=== PATIENT | male | born 1955 | race Caucasian/White ===

== ENCOUNTER 2020-09-03 11:56 | Outpatient (REF) | payer OTHER, SELFPAY ==
[2020-09-03 14:05] LABS: MANUAL DIFF FLAG NO
[2020-09-03 14:16] LABS: Basophils Absolute Auto 0.1 X10*3/uL (0.0-0.2); Eosinophils Absolute Auto 0.2 X10*3/uL (0.0-0.4); Eosinophils Percent Auto 2.7 % (0-4); Hematocrit 44.6 % (42-52); Hemoglobin 15.4 g/dl (14.0-18.0); Imm Gran Abs Auto 0.02 X10*3/uL (0.00-0.03); Imm Gran Pct Auto 0.3 % (0.0-0.4); Lymphocytes Absolute Auto 2.1 X10*3/uL (1.2-4.9); Lymphocytes Percent Auto 35.3 % (20-40); Mean Corpuscular HGB Conc 34.5 g/dl (31.0-36.0); Mean Corpuscular Hemoglobin 32.4 pg (27.0-33.0); Mean Corpuscular Volume 93.9 fL (80-98); Mean Platelet Volume 11.2 fL (9.4-12.4); Monocytes Absolute Auto 0.6 X10*3/uL (0.1-1.2); Monocytes Percent Auto 9.3 % (2-11); Neutrophils Percent Auto 51.4 % (45-73); Platelet Count 151 X10*3/uL (160-400); Red Blood Count 4.75 X10*6/uL (4.60-5.80); Red Cell Distribution Width 13.1 % (11.0-16.0); White Blood Count 5.9 X10*3/uL (4.8-10.8)
[2020-09-03 14:17] LABS: Estimated Average Glucose 157 mg/dL; Hemoglobin A1c % 7.1 %
[2020-09-03 14:25] LABS: Creatinine Urine 211.54 mg/dL; Microalbum/Creatinine Ratio Ur 6.6 ug/mg cr
[2020-09-03 14:27] LABS: Alanine Aminotransferase 44 U/L (0-40); Albumin Level 4.1 g/dL (3.5-5.0); Alkaline Phosphatase 112 U/L (39-117); Anion Gap 15 (12-20); Aspartate Amino Transferase 43 U/L (5-37); Bilirubin Total 0.8 mg/dL (0.0-1.0); Blood Urea Nitrogen 12 mg/dL (9-16); Calcium 9.1 mg/dL (8.4-10.2); Carbon Dioxide 26 mmol/L (22-29); Chloride 102 mmol/L (96-108); Cholesterol 191 mg/dL; Estimated Glomerular Filt Rate > 60; Glucose Random 139 mg/dL (60-115); HDL Cholesterol 47 mg/dL; LDL Cholesterol Calculated 116 mg/dl; Potassium 4.5 mmol/L (3.3-5.1); Sodium 138 mmol/L (135-145); Total Protein 7.5 g/dL (6.5-8.0); Triglycerides 142 mg/dL; Uric Acid 4.3 mg/dL (3.4-7.0)
[2020-09-03 14:49] LABS: Free T4 (Free Thyroxine) 0.91 ng/dL (0.71-1.85); Prostate Specific Antigen Scr 0.74 ng/mL (<0.05-4.0); Thyroid Stimulating Hormone 0.13 uIU/mL (0.32-4.0)
[2020-09-03 15:13] LABS: Folate 7.4 ng/mL (> or = 4.0); Vitamin B12 354 pg/mL (200-900)
== END 2020-09-03 11:57 | disposition home or self-care (01) ==
LOC: HO.HMGCLDS 11:56
PROVIDERS: PCP Internal Medicine; Visit Provider Internal Medicine
DX: E78.00 Pure hypercholesterolemia, unspecified (principal); E78.1 Pure hyperglyceridemia; E11.65 Type 2 diabetes mellitus with hyperglycemia; I10 Essential (primary) hypertension; M10.9 Gout, unspecified; R79.89 Other specified abnormal findings of blood chemistry; Z12.5 Encounter for screening for malignant neoplasm of prostate
CPT/HCPCS: 36415; 80053; 80061; 82043; 82607; 82746; 83036; 84153; 84439; 84443; 84550; 85025

== ENCOUNTER 2020-09-24 13:40 | Outpatient (REF) | payer OTHER, SELFPAY ==
[2020-09-24 16:54] LABS: Creatinine Urine 72.68 mg/dL
[2020-09-24 17:17] LABS: Free T4 (Free Thyroxine) 0.99 ng/dL (0.71-1.85); Thyroid Stimulating Hormone 0.13 uIU/mL (0.32-4.0)
== END 2020-09-24 13:41 | disposition home or self-care (01) ==
LOC: HO.HMGCLDS 13:40
PROVIDERS: PCP Internal Medicine; Visit Provider Internal Medicine
DX: R79.89 Other specified abnormal findings of blood chemistry (principal); E11.65 Type 2 diabetes mellitus with hyperglycemia; E05.90 Thyrotoxicosis, unspecified without thyrotoxic crisis or storm
CPT/HCPCS: 36415; 84439; 84443

== ENCOUNTER 2020-11-18 11:39 | Outpatient (REF) | payer OTHER, SELFPAY ==
[2020-11-18 14:24] LABS: Free T4 (Free Thyroxine) 0.96 ng/dL (0.71-1.85); Thyroid Stimulating Hormone 0.09 uIU/mL (0.32-4.0)
[2020-11-19 10:12] LABS: Triiodothyronine T3 Total 106 ng/dL (76-181)
[2020-11-19 19:11] LABS: Thyroglobulin Antibodies <1 IU/mL (< or = 1); Thyroid Peroxidase Antibodies 1 IU/mL (<9)
[2020-11-22 16:16] LABS: Thyroid Stimulating Immunoglob <89 % baseline (<140)
[2020-11-23 07:56] LABS: Thyrotropin Receptor Antibody <1.00 IU/L (<=2.00)
== END 2020-11-18 11:40 | disposition home or self-care (01) ==
LOC: HO.LAB 11:39
PROVIDERS: PCP Internal Medicine; Referring Provider Internal Medicine; Visit Provider Internal Medicine Endocrinology, Diabetes & Metabolism
DX: E05.90 Thyrotoxicosis, unspecified without thyrotoxic crisis or storm (principal); E04.9 Nontoxic goiter, unspecified; F17.290 Nicotine dependence, other tobacco product, uncomplicated; Z79.899 Other long term (current) drug therapy; Z79.82 Long term (current) use of aspirin
CPT/HCPCS: 36415; 83520; 84439; 84443; 84445; 84480; 86376; 86800; 99202

== ENCOUNTER 2020-11-30 13:47 | Outpatient (REF) | payer OTHER, SELFPAY ==
--- NOTE | ~2020-11-30 | US_ITS ---
EXAMINATION: US THYROID CLINICAL INFORMATION: Nontoxic goiter, unspecified. COMPARISON: None TECHNIQUE: Linear transducer sadler-scale and color Doppler examination with attention to the region of the thyroid. FINDINGS: SIZE: Measurements of the thyroid lobes and nodules are given in sagittal, anteroposterior and transverse dimensions respectively. Right Thyroid Lobe: 7.1 x 2.9 x 3.0 cm, volume 32.3 mL. Parenchyma: The gland echotexture is heterogeneous. Thyroid vascularity is increased. Left Thyroid Lobe: 9.9 x 4.7 x 4.1 cm, volume 99.8 mL. Parenchyma: The gland echotexture is heterogeneous. Thyroid vascularity is increased. Isthmus: 2.5 cm in maximum AP dimension. Estimated total number of nodules greater than or equal to 1 cm: 4. Balance Wheel Motion Inspector nodules are described as follows: 1. Location: Left mid. Size: 4.5 x 4.0 x 5.0 cm, volume 46.3 mL. Nodule characteristics: Composition: Solid (2). Echogenicity: Isoechoic (1). Shape: Not taller than wide (0). Margins: Lobulated (2). ACR TI-RADS total points: 5 ACR TI-RADS category: 4 2. Location: Lower left isthmus. Size: 4.5 x 2.3 x 3.0 cm, volume 16.4 mL. Nodule characteristics: Composition: Solid (2). Echogenicity: Isoechoic (1). Shape: Not taller than wide (0). Margins: Lobulated (2). Echogenic Foci: Punctate echogenic foci (3). ACR TI-RADS total points: 8 ACR TI-RADS category: 5 3. Location: Lower left. Size: 3.9 x 3.4 x 3.2 cm, volume 29.6 mL. Nodule characteristics: Composition: Solid (2). Echogenicity: Isoechoic (1). Shape: Taller than wide (3). Margins: Ill-defined (0). Echogenic Foci: None (0). ACR TI-RADS total points: 6 ACR TI-RADS category: 4 4. Location: Right. Size: 5.6 x 3.0 x 3.3 cm, volume 29.4 mL. Nodule characteristics: Composition: Solid (2). Echogenicity: Isoechoic (1). Shape: Not taller than wide (0). Margins: Lobulated (2). Echogenic Foci: None (0). ACR TI-RADS total points: 5 ACR TI-RADS category: 4 NODES: No lymphadenopathy is seen in the tissue surrounding the thyroid gland. US/US thyroid IMPRESSION: Significantly enlarged thyroid gland secondary to multiple bilateral lung nodules with the largest nodule in the right middle lobe and left middle lobe. These nodules are lie adjacent to each other and very difficult to differentiate. There are likely smaller nodules hard to differentiate from the larger nodules. Based on ACR TI-RADS recommendation, all of the large 4 nodules should be biopsied. If biopsy cannot be performed, a short-term 3-6 month followup should be performed. ACR TI-RADS RECOMMENDATION REFERENCE: Ultrasound-guided fine-needle aspiration, followup ultrasound, no further follow up. * TR1 (0 point) and TR 2 (2 points): No FNA or follow up * TR3 (3 points): FNA if more than or equal to 2.5 cm in maximum dimension, followup ultrasound in 1, 3 and 5 years if 1.5 to 2.4 cm in maximum dimension. * TR4 (4-6 points): FNA if more than or equal to 1.5 cm in maximum dimension, followup ultrasound in 1, 2, 3 and 5 years if 1 to 1.4 cm in maximum dimension. * TR5 (more than or equal to 7 points): FNA if more than or equal to 1 cm in maximum dimension, followup ultrasound every year for 5 years if 0.5 to 0.9 cm in maximum dimension. * TR3, TR4 or TR5 nodules that are below the size threshold for follow up receive no follow up.
== END 2020-11-30 13:48 | disposition home or self-care (01) ==
LOC: HO.HMGCX 13:47
PROVIDERS: PCP Internal Medicine; Visit Provider Internal Medicine Endocrinology, Diabetes & Metabolism
DX: E04.9 Nontoxic goiter, unspecified (principal); E05.90 Thyrotoxicosis, unspecified without thyrotoxic crisis or storm
CPT/HCPCS: 76536

== ENCOUNTER → 2020-12-30 10:19 | Outpatient (REF) | payer OTHER, SELFPAY ==
--- NOTE | ~2020-12-30 | NM_ITS ---
EXAMINATION: NM THYROID UPTAKE AND SCAN CLINICAL INFORMATION: Nontoxic goiter. COMPARISON: None TECHNIQUE: Following the oral administration of 272 microcuries of I-123 sodium iodide, thyroid uptake was performed and expressed as a percentage of the administrated dose. Gamma scintillation camera images of the thyroid in the anterior and right and left anterior oblique views were obtained using a pinhole collimator following the administration of 10 mCi Tc-99m pertechnetate. FINDINGS: The uptake is 8.14% at 4 hours and 26.18% at 24 hours. On thyroid scan, there is significant decreased activity seen in enlarged left thyroid lobe with a small colloid nodule in the upper pole and midpole suspected. There is normal activity seen in the upper pole right lobe and decreased activity in the mid to lower pole right lobe. Overall, the gland appears enlarged. NM/NM thyroid w uptake IMPRESSION: Findings suggestive of an enlarged thyroid gland with multiple cold nodules in both lobes. The left lobe is larger compared to right side. The radioactive iodine uptake is normal at 4 hours and 24 hours..
== END ==
LOC: HO.NUCMED 10:19
PROVIDERS: PCP Internal Medicine; Visit Provider Internal Medicine Endocrinology, Diabetes & Metabolism
DX: E04.9 Nontoxic goiter, unspecified (principal); E05.90 Thyrotoxicosis, unspecified without thyrotoxic crisis or storm
CPT/HCPCS: 78014; A9512; A9516

== ENCOUNTER 2021-01-24 14:07 | Outpatient (REF) | payer OTHER, SELFPAY | END 2021-01-24 14:08 | disposition home or self-care (01) | LOC: HO.LNP 14:07 | PROVIDERS: Visit Provider Hospitalist | DX: J01.90 Acute sinusitis, unspecified (principal); Z20.822 Contact with and (suspected) exposure to COVID-19 | CPT/HCPCS: U0003; U0005 ==

== ENCOUNTER 2021-03-04 12:12 | Outpatient (REF) | payer OTHER, SELFPAY ==
[2021-03-04 14:26] LABS: Alanine Aminotransferase 23 U/L (0-40); Albumin Level 4.5 g/dL (3.5-5.0); Alkaline Phosphatase 108 U/L (39-117); Anion Gap 16 (12-20); Aspartate Amino Transferase 26 U/L (5-37); Bilirubin Total 1.3 mg/dL (0.0-1.0); Blood Urea Nitrogen 18 mg/dL (9-16); Calcium 9.8 mg/dL (8.4-10.2); Carbon Dioxide 24 mmol/L (22-29); Chloride 101 mmol/L (96-108); Cholesterol 180 mg/dL; Estimated Glomerular Filt Rate > 60; Glucose Random 126 mg/dL (60-115); HDL Cholesterol 53 mg/dL; LDL Cholesterol Calculated 96 mg/dl; Potassium 4.5 mmol/L (3.3-5.1); Sodium 136 mmol/L (135-145); Triglycerides 155 mg/dL
== END 2021-03-04 12:13 | disposition home or self-care (01) ==
LOC: HO.HMGCLDS 12:12
PROVIDERS: PCP Internal Medicine; Visit Provider Internal Medicine
DX: E78.00 Pure hypercholesterolemia, unspecified (principal)
CPT/HCPCS: 36415; 80053; 80061

== ENCOUNTER 2021-04-06 12:41 | Outpatient (REF) | payer OTHER, SELFPAY ==
[2021-04-06 14:55] LABS: Alanine Aminotransferase 27 U/L (0-40); Albumin Level 4.3 g/dL (3.5-5.0); Alkaline Phosphatase 115 U/L (39-117); Anion Gap 13 (12-20); Aspartate Amino Transferase 27 U/L (5-37); Bilirubin Total 0.7 mg/dL (0.0-1.0); Blood Urea Nitrogen 14 mg/dL (9-16); Calcium 9.9 mg/dL (8.4-10.2); Carbon Dioxide 27 mmol/L (22-29); Chloride 101 mmol/L (96-108); Estimated Glomerular Filt Rate > 60; Glucose Random 131 mg/dL (60-115); Phosphorus 2.6 mg/dL (2.7-4.5); Potassium 4.5 mmol/L (3.3-5.1); Sodium 136 mmol/L (135-145); Total Protein 7.6 g/dL (6.5-8.0)
[2021-04-06 15:18] LABS: Free T4 (Free Thyroxine) 1.02 ng/dL (0.71-1.85); Thyroid Stimulating Hormone 0.04 uIU/mL (0.32-4.0); Vitamin D 25-OH Total 26.3 ng/mL (>30)
[2021-04-08 00:32] LABS: Triiodothyronine T3 Total 125 ng/dL (76-181)
[2021-04-08 10:32] LABS: Calcium (PTHI) 9.9 mg/dL (8.6-10.3); PTHI 26 pg/mL (14-64)
== END 2021-04-06 12:42 | disposition home or self-care (01) ==
LOC: HO.LAB 12:41
PROVIDERS: PCP Internal Medicine; Visit Provider Internal Medicine
DX: E55.9 Vitamin D deficiency, unspecified (principal); E05.80 Other thyrotoxicosis without thyrotoxic crisis or storm; E04.2 Nontoxic multinodular goiter; Z79.899 Other long term (current) drug therapy
CPT/HCPCS: 36415; 80053; 82306; 83970; 84100; 84439; 84443; 84480; 99212

== ENCOUNTER 2021-07-21 10:25 | Outpatient (REF) | payer OTHER, MEDICAID, SELFPAY ==
[2021-07-21 11:39] LABS: Estimated Average Glucose 134 mg/dL; Hemoglobin A1c % 6.3 %
[2021-07-21 11:45] LABS: Alanine Aminotransferase 16 U/L (0-40); Albumin Level 4.3 g/dL (3.5-5.0); Alkaline Phosphatase 104 U/L (39-117); Anion Gap 11 (12-20); Aspartate Amino Transferase 21 U/L (5-37); Bilirubin Total 0.9 mg/dL (0.0-1.0); Blood Urea Nitrogen 23 mg/dL (9-16); Calcium 9.8 mg/dL (8.4-10.2); Carbon Dioxide 27 mmol/L (22-29); Chloride 102 mmol/L (96-108); Estimated Glomerular Filt Rate 55; Glucose Random 141 mg/dL (60-115); Potassium 4.6 mmol/L (3.3-5.1); Sodium 135 mmol/L (135-145); Total Protein 7.8 g/dL (6.5-8.0)
== END 2021-07-21 10:26 | disposition home or self-care (01) ==
LOC: HO.HMGCLDS 10:25
PROVIDERS: PCP Internal Medicine; Visit Provider Internal Medicine
DX: I10 Essential (primary) hypertension (principal)
CPT/HCPCS: 36415; 80053; 83036

== ENCOUNTER 2021-08-01 10:29 | Outpatient (REF) | payer OTHER, SELFPAY ==
[2021-08-01 13:44] LABS: MANUAL DIFF FLAG NO
[2021-08-01 13:47] LABS: Basophils Absolute Auto 0.1 X10*3/uL (0.0-0.2); Basophils Percent Auto 0.6 % (0-2); Eosinophils Absolute Auto 0.2 X10*3/uL (0.0-0.4); Hematocrit 42.6 % (42.0-52.0); Hemoglobin 14.6 g/dl (14.0-18.0); Imm Gran Abs Auto 0.02 X10*3/uL (0.00-0.03); Imm Gran Pct Auto 0.3 % (0.0-0.4); Lymphocytes Absolute Auto 2.3 X10*3/uL (1.2-4.9); Mean Corpuscular HGB Conc 34.3 g/dl (31.0-36.0); Mean Corpuscular Hemoglobin 32.2 pg (27.0-33.0); Mean Corpuscular Volume 93.8 fL (80.0-98.0); Mean Platelet Volume 11.3 fL (9.4-12.4); Monocytes Absolute Auto 0.7 X10*3/uL (0.1-1.2); Neutrophils Absolute Auto 4.6 x10*3/uL (2.0-8.3); Neutrophils Percent Auto 59.1 % (45-73); Platelet Count 218 X10*3/uL (160-400); Red Blood Count 4.54 X10*6/uL (4.60-5.80); Red Cell Distribution Width 12.3 % (11.0-16.0); White Blood Count 7.8 X10*3/uL (4.8-10.8)
[2021-08-01 14:02] LABS: Cholesterol 196 mg/dL; HDL Cholesterol 50 mg/dL; LDL Cholesterol Calculated 119 mg/dl; Triglycerides 136 mg/dL
[2021-08-01 14:03] LABS: Alanine Aminotransferase 23 U/L (0-40); Albumin Level 4.2 g/dL (3.5-5.0); Alkaline Phosphatase 109 U/L (39-117); Anion Gap 14 (12-20); Aspartate Amino Transferase 25 U/L (5-37); Bilirubin Direct 0.3 mg/dL (0.0-0.5); Bilirubin Total 0.6 mg/dL (0.0-1.0); Blood Urea Nitrogen 15 mg/dL (9-16); Calcium 9.6 mg/dL (8.4-10.2); Carbon Dioxide 22 mmol/L (22-29); Chloride 103 mmol/L (96-108); Estimated Glomerular Filt Rate > 60; Glucose Random 147 mg/dL (60-115); Potassium 4.4 mmol/L (3.3-5.1); Sodium 135 mmol/L (135-145); Total Protein 7.7 g/dL (6.5-8.0)
[2021-08-02 08:02] LABS: HBS Num1 0.15 mIU/mL (0-7.99); HBc Num1 0.19 S/CO (0.00-0.79); Hepatitis B Core Antibody Nonreactive (Nonreactive); ~HepC Num1 0.34 S/CO (0.00-0.79); ~Hepatitis B Surface Antibody NONREACTIVE (Nonreactive); ~Hepatitis C Antibody Nonreactive (Nonreactive)
[2021-08-02 08:11] LABS: HBsAGNum1 0.19 S/CO (0.00-0.99); Hepatitis B Surface Antigen Negative (Negative)
[2021-08-03 12:32] LABS: TS Negative Control Passed; TS Panel A 0; TS Panel B 0; TS Positive Control Passed; TSpotTB Negative (Negative)
== END 2021-08-01 10:30 | disposition home or self-care (01) ==
LOC: HO.HMGCLDS 10:29
PROVIDERS: Visit Provider Dermatology
DX: Z11.1 Encounter for screening for respiratory tuberculosis (principal); L40.0 Psoriasis vulgaris; L40.8 Other psoriasis
CPT/HCPCS: 36415; 80048; 80061; 80076; 85025; 86481; 86704; 86706; 86803; 87340

== ENCOUNTER 2021-08-11 11:23 | Outpatient (REF) | payer MEDICAID, SELFPAY ==
[2021-08-11 14:26] LABS: Free T4 (Free Thyroxine) 0.92 ng/dL (0.71-1.85); Thyroid Stimulating Hormone 1.52 uIU/mL (0.32-4.0)
[2021-08-12 05:31] LABS: Triiodothyronine T3 Total 119 ng/dL (76-181)
== END 2021-08-11 11:24 | disposition home or self-care (01) ==
LOC: HO.HMGCLDS 11:23
PROVIDERS: PCP Internal Medicine; Visit Provider Internal Medicine
DX: E05.90 Thyrotoxicosis, unspecified without thyrotoxic crisis or storm (principal)
CPT/HCPCS: 36415; 84439; 84443; 84480

== ENCOUNTER 2021-08-18 09:51 | Outpatient (REF) | payer OTHER, SELFPAY ==
--- NOTE | 2021-08-18 10:38 | PM.OP ---
Brief Operative Note Date of Service: 08/18/21 Pre-op diagnosis: Multinodular Thyroid Procedure: This is doctor Cynthia Bonds. This is an ultrasound-guided fine-needle aspiration report. Date of Examination: 08/18/2021 Indication: Multinodular Thyroid Porcedure: Procedure was explained to the patient. Alternatives, the risk and benefits were discussed. Written consent was obtained. A time-out was also obtained. After sterile preparation, fine-needle aspiration of a right lower pole 5.6 cm thyroid nodule was performed using direct ultrasound guidance to confirm accurate needle placement. Four aspirations were made using 27 gauge needles. Samples were submitted for cytology. One pass was dedicated for [employer] sequencing pharmaceutical operator testing. Our attention was then turned to the right isthmus. Fine-needle aspiration of a right isthmus 2.3 cm thyroid nodule was performed using direct ultrasound guidance to confirm accurate needle placement. Three aspirations were made using 27 gauge needles. Samples were submitted for cytology. One pass was dedicated for [employer] sequencing pharmaceutical operator testing. The patient tolerated the procedure well. Aftercare instructions were provided. Impression: Uncomplicated fine needle aspiration biopsy of a right lower pole 5.6 cm thyroid nodule and a right isthmus 2.3 cm thyroid nodule under ultrasound guidance. Surgeon: Cynthia Bonds, DO Was an Unified Communications Engineer used for this Procedure?: No Estimated blood loss (mL): 0
== END 2021-08-18 09:52 | disposition home or self-care (01) ==
LOC: HO.US 09:51
PROVIDERS: Visit Provider Nurse Practitioner Family
DX: E04.2 Nontoxic multinodular goiter (principal)
CPT/HCPCS: 10005; 10006; 88172; 88173

== ENCOUNTER → 2021-09-01 10:05 | Outpatient (BNVA) | payer OTHER, SELFPAY | PROVIDERS: PCP Internal Medicine; Visit Provider Internal Medicine | DX: E04.2 Nontoxic multinodular goiter (principal); Z79.899 Other long term (current) drug therapy ==

== ENCOUNTER 2021-09-08 09:49 | Outpatient (REF) | payer OTHER, SELFPAY ==
--- NOTE | 2021-09-08 10:30 | PM.OP ---
Brief Operative Note Date of Service: 09/08/21 Pre-op diagnosis: Multinodular Thyroid Procedure: This is doctor Cynthia Bonds. This is an ultrasound-guided fine-needle aspiration report. Date of Examination: 09/08/2021 Indication: Multinodular Thyroid Porcedure: Procedure was explained to the patient. Alternatives, the risk and benefits were discussed. Written consent was obtained. A time-out was also obtained. After sterile preparation, fine-needle aspiration of a left isthmus 2.0 cm thyroid nodule was performed using direct ultrasound guidance to confirm accurate needle placement. Three aspirations were made using 27 gauge needles. Samples were submitted for cytology. One pass was dedicated for [employer] sequencing adjustment supervisor testing. Our attention was then turned to the left lower pole. Fine-needle aspiration of a left lower pole 4.5 cm thyroid nodule was performed using direct ultrasound guidance to confirm accurate needle placement. Four aspirations were made using 27 gauge needles. Samples were submitted for cytology. One pass was dedicated for [employer] sequencing adjustment supervisor testing. Our attention was then turned to the left mid pole. Fine-needle aspiration of a left mid pole 3.5 cm thyroid nodule was performed using direct ultrasound guidance to confirm accurate needle placement. Four aspirations were made using 27 gauge needles. Samples were submitted for cytology. One pass was dedicated for [employer] sequencing adjustment supervisor testing. The patient tolerated the procedure well. Aftercare instructions were provided. Impression: Uncomplicated fine needle aspiration biopsy of a left isthmus 2.0 cm, a left mid pole 3.5 cm and a left lower pole 4.5 cm thyroid nodule under ultrasound guidance. Surgeon: Cynthia Bonds, DO Was an Home Help Aide used for this Procedure?: No Estimated blood loss (mL): 0
== END 2021-09-08 09:50 | disposition home or self-care (01) ==
LOC: HO.US 09:49
PROVIDERS: Visit Provider Internal Medicine
DX: E04.2 Nontoxic multinodular goiter (principal)
CPT/HCPCS: 10005; 10006; 88172; 88173; 88177

== ENCOUNTER → 2021-10-13 08:22 | Outpatient (BNVA) | payer OTHER, SELFPAY | PROVIDERS: PCP Internal Medicine; Visit Provider Internal Medicine | DX: Z13.89 Encounter for screening for other disorder (principal) ==

== ENCOUNTER 2021-11-09 12:04 | Outpatient (REF) | payer OTHER, SELFPAY ==
[2021-11-09 14:45] LABS: Alanine Aminotransferase 17 U/L (0-40); Albumin Level 4.4 g/dL (3.5-5.0); Alkaline Phosphatase 115 U/L (39-117); Anion Gap 15 (12-20); Aspartate Amino Transferase 20 U/L (5-37); Bilirubin Total 0.7 mg/dL (0.0-1.0); Blood Urea Nitrogen 26 mg/dL (9-16); Carbon Dioxide 22 mmol/L (22-29); Chloride 104 mmol/L (96-108); Cholesterol 179 mg/dL; Estimated Glomerular Filt Rate 46; Glucose Random 119 mg/dL (60-115); HDL Cholesterol 57 mg/dL; LDL Cholesterol Calculated 98 mg/dl; Potassium 5.1 mmol/L (3.3-5.1); Sodium 136 mmol/L (135-145); Total Protein 8.1 g/dL (6.5-8.0); Triglycerides 121 mg/dL
== END 2021-11-09 12:05 | disposition home or self-care (01) ==
LOC: HO.HMGCLDS 12:04
PROVIDERS: PCP Internal Medicine; Visit Provider Internal Medicine
DX: E78.00 Pure hypercholesterolemia, unspecified (principal)
CPT/HCPCS: 36415; 80053; 80061

== ENCOUNTER 2021-11-21 08:26 | Outpatient (REF) | payer OTHER, SELFPAY ==
[2021-11-21 13:06] LABS: Anion Gap 15 (12-20); Blood Urea Nitrogen 28 mg/dL (9-16); Calcium 9.6 mg/dL (8.4-10.2); Carbon Dioxide 21 mmol/L (22-29); Chloride 102 mmol/L (96-108); Estimated Glomerular Filt Rate 53; Glucose Random 113 mg/dL (60-115); Sodium 133 mmol/L (135-145)
== END 2021-11-21 08:27 | disposition home or self-care (01) ==
LOC: HO.HMGCLDS 08:26
PROVIDERS: PCP Internal Medicine; Visit Provider Internal Medicine
DX: I10 Essential (primary) hypertension (principal)
CPT/HCPCS: 36415; 80048

== ENCOUNTER 2021-12-01 11:48 | Outpatient (REF) | payer OTHER, SELFPAY ==
[2021-12-01 14:16] LABS: Albumin Level 4.5 g/dL (3.5-5.0); Phosphorus 3.3 mg/dL (2.7-4.5)
[2021-12-01 14:41] LABS: Free T4 (Free Thyroxine) 0.88 ng/dL (0.71-1.85); Thyroid Stimulating Hormone 0.77 uIU/mL (0.32-4.0); Vitamin D 25-OH Total 31.4 ng/mL (>30)
[2021-12-02 17:47] LABS: Calcium (PTHI) 9.8 mg/dL (8.6-10.3); PTHI 30 pg/mL (16-77)
[2021-12-03 12:01] LABS: Triiodothyronine T3 Total 103 ng/dL (76-181)
== END 2021-12-01 11:49 | disposition home or self-care (01) ==
LOC: HO.HMGCLDS 11:48
PROVIDERS: PCP Internal Medicine; Visit Provider Internal Medicine
DX: E04.2 Nontoxic multinodular goiter (principal); E05.90 Thyrotoxicosis, unspecified without thyrotoxic crisis or storm; E55.9 Vitamin D deficiency, unspecified
CPT/HCPCS: 36415; 82040; 82306; 83970; 84100; 84439; 84443; 84480

== ENCOUNTER 2022-03-17 10:46 | Outpatient (REF) | payer OTHER, SELFPAY ==
[2022-03-17 14:22] LABS: Free T4 (Free Thyroxine) 0.95 ng/dL (0.71-1.85)
[2022-03-18 19:56] LABS: Triiodothyronine T3 Free 3.4 pg/mL (2.3-4.2)
== END 2022-03-17 10:47 | disposition home or self-care (01) ==
LOC: HO.HMGCLDS 10:46
PROVIDERS: Absent Provider Internal Medicine; PCP Internal Medicine; Visit Provider Surgery
DX: E05.00 Thyrotoxicosis with diffuse goiter without thyrotoxic crisis or storm (principal)
CPT/HCPCS: 36415; 84439; 84443; 84481

== ENCOUNTER 2022-05-19 10:49 | Outpatient (REF) | payer OTHER, SELFPAY ==
[2022-05-19 14:12] LABS: MANUAL DIFF FLAG NO
[2022-05-19 14:24] LABS: Basophils Absolute Auto 0.1 X10*3/uL (0.0-0.2); Eosinophils Absolute Auto 0.2 X10*3/uL (0.0-0.4); Hematocrit 43.8 % (42.0-52.0); Hemoglobin 14.9 g/dl (14.0-18.0); Imm Gran Abs Auto 0.02 X10*3/uL (0.00-0.03); Imm Gran Pct Auto 0.3 % (0.0-0.4); Lymphocytes Absolute Auto 2.1 X10*3/uL (1.2-4.9); Lymphocytes Percent Auto 33.8 % (20-40); Mean Corpuscular Hemoglobin 32.1 pg (27.0-33.0); Mean Corpuscular Volume 94.4 fL (80.0-98.0); Mean Platelet Volume 11.3 fL (9.4-12.4); Monocytes Absolute Auto 0.6 X10*3/uL (0.1-1.2); Neutrophils Absolute Auto 3.3 x10*3/uL (2.0-8.3); Neutrophils Percent Auto 51.9 % (45-73); Platelet Count 197 X10*3/uL (160-400); Red Blood Count 4.64 X10*6/uL (4.60-5.80); Red Cell Distribution Width 12.6 % (11.0-16.0); White Blood Count 6.3 X10*3/uL (4.8-10.8)
[2022-05-19 16:27] LABS: Alanine Aminotransferase 28 U/L (0-40); Albumin Level 4.3 g/dL (3.5-5.0); Alkaline Phosphatase 136 U/L (39-117); Anion Gap 10 (12-20); Aspartate Amino Transferase 30 U/L (5-37); Bilirubin Total 0.4 mg/dL (0.0-1.0); Blood Urea Nitrogen 18 mg/dL (9-16); Calcium 9.2 mg/dL (8.4-10.2); Carbon Dioxide 26 mmol/L (22-29); Chloride 104 mmol/L (96-108); Estimated Glomerular Filt Rate > 60; Glucose Random 144 mg/dL (60-115); Potassium 4.4 mmol/L (3.3-5.1); Sodium 136 mmol/L (135-145); Total Protein 7.3 g/dL (6.5-8.0)
[2022-05-19 16:47] LABS: Albumin Level 4.4 g/dL (3.5-5.0); Free T4 (Free Thyroxine) 1.26 ng/dL (0.71-1.85); Phosphorus 2.8 mg/dL (2.7-4.5); Thyroid Stimulating Hormone 0.32 uIU/mL (0.32-4.0); Vitamin D 25-OH Total 19.5 ng/mL (>30)
[2022-05-20 20:53] LABS: Triiodothyronine T3 Total 113 ng/dL (76-181)
[2022-05-23 07:49] LABS: TS Negative Control Passed; TS Panel A 0; TS Panel B 0; TS Positive Control Passed; TSpotTB Negative (Negative)
[2022-05-23 15:13] LABS: Calcium (PTHI) 9.4 mg/dL (8.6-10.3); PTHI 41 pg/mL (16-77)
== END 2022-05-19 10:50 | disposition home or self-care (01) ==
LOC: HO.HMGCLDS 10:49
PROVIDERS: Absent Provider Dermatology; PCP Internal Medicine; Visit Provider Internal Medicine
DX: Z11.1 Encounter for screening for respiratory tuberculosis (principal); L40.0 Psoriasis vulgaris; E05.90 Thyrotoxicosis, unspecified without thyrotoxic crisis or storm; E55.9 Vitamin D deficiency, unspecified; E04.2 Nontoxic multinodular goiter
CPT/HCPCS: 36415; 80053; 82040; 82306; 83970; 84100; 84439; 84443; 84480; 85025; 86481

== ENCOUNTER 2022-07-10 13:46 | Outpatient (REF) | payer OTHER, SELFPAY ==
[2022-07-10 17:09] LABS: Albumin Level 4.6 g/dL (3.5-5.0); Phosphorus 2.8 mg/dL (2.7-4.5)
[2022-07-10 17:27] LABS: Free T4 (Free Thyroxine) 1.74 ng/dL (0.71-1.85); Thyroid Stimulating Hormone 0.08 uIU/mL (0.32-4.0); Vitamin D 25-OH Total 14.8 ng/mL (>30)
[2022-07-11 17:59] LABS: Calcium (PTHI) 9.8 mg/dL (8.6-10.3); PTHI 35 pg/mL (16-77)
== END 2022-07-10 13:47 | disposition home or self-care (01) ==
LOC: HO.HMGCLDS 13:46
PROVIDERS: Visit Provider Internal Medicine
DX: E89.0 Postprocedural hypothyroidism (principal); E55.9 Vitamin D deficiency, unspecified
CPT/HCPCS: 36415; 82040; 82306; 83970; 84100; 84439; 84443

== ENCOUNTER → 2022-07-12 08:25 | Outpatient (BNVA) | payer OTHER, SELFPAY | PROVIDERS: PCP Internal Medicine; Visit Provider Internal Medicine | DX: E89.0 Postprocedural hypothyroidism (principal) | CPT/HCPCS: 99212 ==

== ENCOUNTER 2022-08-23 10:56 | Outpatient (REF) | payer OTHER, SELFPAY ==
[2022-08-23 14:34] LABS: Free T4 (Free Thyroxine) 1.19 ng/dL (0.71-1.85); Thyroid Stimulating Hormone 0.21 uIU/mL (0.32-4.0)
== END 2022-08-23 10:57 | disposition home or self-care (01) ==
LOC: HO.HMGCLDS 10:56
PROVIDERS: PCP Internal Medicine; Visit Provider Internal Medicine
DX: E04.2 Nontoxic multinodular goiter (principal); E89.0 Postprocedural hypothyroidism
CPT/HCPCS: 36415; 84439; 84443

== ENCOUNTER 2022-10-13 12:50 | Outpatient (REF) | payer MEDICARE, SELFPAY ==
[2022-10-13 14:51] LABS: Free T4 (Free Thyroxine) 1.05 ng/dL (0.71-1.85)
== END 2022-10-13 12:51 | disposition home or self-care (01) ==
LOC: HO.HMGCLDS 12:50
PROVIDERS: PCP Internal Medicine; Visit Provider Internal Medicine
DX: E89.0 Postprocedural hypothyroidism (principal)
CPT/HCPCS: 36415; 84439; 84443

== ENCOUNTER → 2022-10-18 11:45 | Outpatient (BNVA) | payer MEDICARE, SELFPAY | PROVIDERS: PCP Internal Medicine; Visit Provider Internal Medicine | DX: E89.0 Postprocedural hypothyroidism (principal) | CPT/HCPCS: 99212 ==

== ENCOUNTER 2023-05-02 11:02 | Outpatient (REF) | payer MEDICARE, SELFPAY ==
[2023-05-02 13:17] LABS: MANUAL DIFF FLAG NO
[2023-05-02 13:21] LABS: Basophils Absolute Auto 0.1 X10*3/uL (0.0-0.2); Eosinophils Absolute Auto 0.2 X10*3/uL (0.0-0.4); Eosinophils Percent Auto 2.7 % (0-4); Hematocrit 45.7 % (42.0-52.0); Hemoglobin 15.6 g/dl (14.0-18.0); Imm Gran Abs Auto 0.02 X10*3/uL (0.00-0.03); Imm Gran Pct Auto 0.3 % (0.0-0.4); Lymphocytes Absolute Auto 2.1 X10*3/uL (1.2-4.9); Lymphocytes Percent Auto 34.2 % (20-40); Mean Corpuscular HGB Conc 34.1 g/dl (31.0-36.0); Mean Corpuscular Hemoglobin 33.5 pg (27.0-33.0); Mean Corpuscular Volume 98.3 fL (80.0-98.0); Mean Platelet Volume 11.3 fL (9.4-12.4); Monocytes Absolute Auto 0.6 X10*3/uL (0.1-1.2); Monocytes Percent Auto 9.5 % (2-11); Neutrophils Absolute Auto 3.3 x10*3/uL (2.0-8.3); Neutrophils Percent Auto 52.3 % (45-73); Platelet Count 192 X10*3/uL (160-400); Red Blood Count 4.65 X10*6/uL (4.60-5.80); Red Cell Distribution Width 12.8 % (11.0-16.0); White Blood Count 6.2 X10*3/uL (4.8-10.8)
[2023-05-02 13:41] LABS: Alanine Aminotransferase 51 U/L (0-40); Albumin Level 4.4 g/dL (3.5-5.0); Alkaline Phosphatase 125 U/L (39-117); Anion Gap 12 (12-20); Aspartate Amino Transferase 64 U/L (5-37); Bilirubin Total 0.7 mg/dL (0.0-1.0); Blood Urea Nitrogen 11 mg/dL (9-16); Calcium 9.7 mg/dL (8.4-10.2); Carbon Dioxide 27 mmol/L (22-29); Chloride 101 mmol/L (96-108); Estimated Glomerular Filt Rate > 60; Glucose Random 148 mg/dL (60-115); Potassium 4.4 mmol/L (3.3-5.1); Sodium 136 mmol/L (135-145)
[2023-05-04 10:23] LABS: TS Negative Control Passed; TS Panel A 0; TS Panel B 0; TS Positive Control Passed; TSpotTB Negative (Negative)
== END 2023-05-02 11:03 | disposition home or self-care (01) ==
LOC: HO.HMGCLDS 11:02
PROVIDERS: PCP Internal Medicine; Visit Provider Dermatology
DX: Z11.1 Encounter for screening for respiratory tuberculosis (principal); L40.0 Psoriasis vulgaris
CPT/HCPCS: 36415; 80053; 85025; 86481

== ENCOUNTER 2023-07-24 12:11 | Outpatient (REF) | payer MEDICARE, SELFPAY ==
[2023-07-24 13:33] LABS: MANUAL DIFF FLAG NO
[2023-07-24 13:38] LABS: Basophils Absolute Auto 0.1 X10*3/uL (0.0-0.2); Eosinophils Absolute Auto 0.1 X10*3/uL (0.0-0.4); Eosinophils Percent Auto 1.8 % (0-4); Hemoglobin 16.3 g/dl (14.0-18.0); Imm Gran Abs Auto 0.02 X10*3/uL (0.00-0.03); Imm Gran Pct Auto 0.3 % (0.0-0.4); Lymphocytes Absolute Auto 2.6 X10*3/uL (1.2-4.9); Lymphocytes Percent Auto 35.8 % (20-40); Mean Corpuscular HGB Conc 34.7 g/dl (31.0-36.0); Mean Corpuscular Hemoglobin 32.9 pg (27.0-33.0); Mean Corpuscular Volume 94.8 fL (80.0-98.0); Monocytes Absolute Auto 0.6 X10*3/uL (0.1-1.2); Monocytes Percent Auto 8.8 % (2-11); Neutrophils Absolute Auto 3.8 x10*3/uL (2.0-8.3); Neutrophils Percent Auto 52.3 % (45-73); Platelet Count 196 X10*3/uL (160-400); Red Blood Count 4.96 X10*6/uL (4.60-5.80); Red Cell Distribution Width 12.3 % (11.0-16.0); White Blood Count 7.2 X10*3/uL (4.8-10.8)
[2023-07-24 13:47] LABS: Estimated Average Glucose 131 mg/dL; Hemoglobin A1c % 6.2 % (<6.0)
[2023-07-24 14:35] LABS: Creatinine Urine 465.39 mg/dL
[2023-07-24 14:48] LABS: Alanine Aminotransferase 56 U/L (0-40); Albumin Level 4.3 g/dL (3.5-5.0); Alkaline Phosphatase 131 U/L (39-117); Anion Gap 15 (12-20); Aspartate Amino Transferase 84 U/L (5-37); Blood Urea Nitrogen 12 mg/dL (9-16); Calcium 9.5 mg/dL (8.4-10.2); Carbon Dioxide 21 mmol/L (22-29); Chloride 103 mmol/L (96-108); Cholesterol 209 mg/dL (<200); Estimated Glomerular Filt Rate > 60; Glucose Random 149 mg/dL (60-115); HDL Cholesterol 49 mg/dL (>40); LDL Cholesterol Calculated 119 mg/dL (<100); Potassium 4.5 mmol/L (3.3-5.1); Sodium 134 mmol/L (135-145); Total Protein 8.2 g/dL (6.5-8.0); Triglycerides 208 mg/dL (<150)
[2023-07-24 14:53] LABS: Thyroid Stimulating Hormone 0.63 uIU/mL (0.32-4.0)
[2023-07-24 15:11] LABS: Folate 8.5 ng/mL (> or = 4.0); Prostate Specific Antigen Scr 0.65 ng/mL (<0.05-4.0); Vitamin B12 518 pg/mL (200-900)
== END 2023-07-24 12:12 | disposition home or self-care (01) ==
LOC: HO.HMGCLDS 12:11
PROVIDERS: PCP Internal Medicine; Visit Provider Internal Medicine
DX: Z12.5 Encounter for screening for malignant neoplasm of prostate (principal); E11.65 Type 2 diabetes mellitus with hyperglycemia; E89.0 Postprocedural hypothyroidism; E78.00 Pure hypercholesterolemia, unspecified
CPT/HCPCS: 36415; 80053; 80061; 82043; 82570; 82607; 82746; 83036; 84153; 84439; 84443; 85025

== ENCOUNTER 2023-08-01 08:53 | Outpatient (REF) | payer MEDICARE, SELFPAY ==
--- NOTE | ~2023-08-01 | US_ITS ---
EXAMINATION: US ABDOMEN COMPLETE CLINICAL INFORMATION: Other specified abnormal findings of blood chemistry. COMPARISON: None available. TECHNIQUE: Real-time imaging of the abdominal viscera. FINDINGS: PANCREAS: Normal. ABDOMINAL AORTA: The proximal, mid, and distal segments are normal in caliber. INFERIOR VENA CAVA: Visualized portions are normal. LIVER: The liver is normal in size. The liver contour is normal. There is diffuse increased liver parenchymal echogenicity. No focal hepatic lesion. There is no intrahepatic biliary duct dilatation seen. GALLBLADDER: There is mild layering sludge. The gallbladder is physiologically distended without evidence of stones, polyps, wall thickening or pericholecystic fluid. COMMON BILE DUCT: Normal in caliber measuring 0.3 cm in diameter. RIGHT KIDNEY: Normal. No hydronephrosis. No renal calculi or focal parenchymal lesions. The kidney measures 12.2 cm in maximum dimension. LEFT KIDNEY: Normal. No hydronephrosis. No renal calculi or focal parenchymal lesions. The kidney measures 11.2 cm in maximum dimension. SPLEEN: Normal. The spleen measures 12.7 cm in maximum dimension. FREE FLUID: None. US/US abdomen complete IMPRESSION: 1. There is generalized increase in hepatic echotexture, consistent with fatty infiltration or hepatocellular disease. Please correlate clinically. No focal hepatic mass or intrahepatic biliary dilatation is seen. 2. There is mild sludge layering within the gallbladder. No cholecystitis, cholelithiasis or choledocholithiasis is seen.
== END 2023-08-01 08:54 | disposition home or self-care (01) ==
LOC: HO.HMGCX 08:53
PROVIDERS: PCP Internal Medicine; Visit Provider Internal Medicine
DX: R79.89 Other specified abnormal findings of blood chemistry (principal)
CPT/HCPCS: 76700

== ENCOUNTER 2023-08-02 12:28 | Outpatient (AMB) | payer MEDICARE, SELFPAY ==
[2023-08-02 12:32] VITALS: BP 158/82; PULSE 91; O2SAT 95; BMI 33.5
--- NOTE | 2023-08-02 12:32 | A.OFFVIS_ITS ---
Intake Vital Signs 08/02/23 12:32 Height 5 ft 11 in Weight 240 lb 0.8 oz BMI 33.5 BP 158/82 H Blood Pressure Location Lt brachial Position Sitting Pulse 91 Pulse Source Pulse Oximeter Pulse Oximetry (%) 95 Oxygen Delivery Method Room Air Intake Visit Reasons: AWV Intake Note: Patient is here for an Annual Wellness Visit. Wheel And Axle Inspector Required: No Allergies wool Allergy (Unknown, Verified 08/02/23 12:33) HIVES ALL OVER Medication List - Last Reconciled 08/02/23 by Tia Oro MD allopurinol 300 mg PO DAILY 90 days amlodipine 2.5 mg PO DAILY 30 days betamethasone dipropionate 0.05% 1 appl topical DAILY betamethasone valerate 0.1% 1 appl topical BID PRN gemfibrozil 600 mg PO DAILY hydrocortisone 2.5% 1 appl topical BID-TID PRN levothyroxine 125 mcg PO DAILY 90 days lisinopril 20 mg PO DAILY 30 days sildenafil 50 mg PO DAILY PRN simvastatin 5 mg PO BEDTIME ustekinumab (Stelara) 90 mg subcut Q4W HPI AWV HPI Details 67-year-old obese male with diabetes chip litus controlled hypercholesterolemia hypertension postsurgical hypothyroidism coming in for annual well visit last seen in May 2022. Patient's colonoscopy is up-to-date April 2019. Patient did see Endocrinology in October 2022 history of total thyroidectomy for toxic multinodular goiter remains on 125 mcg once a day surgical path is benign. recently 1 month ARUBA- had flu ears blocked and concerned about it. [facility] Medical History (Updated 08/02/23 @ 12:38 by Tia Oro MD) Subclinical hyperthyroidism Upper respiratory infection Impacted cerumen of both ears Vitamin D deficiency Multinodular thyroid Acute sinusitis Enlarged thyroid Annual physical exam Hyperthyroidism Abnormal TSH Type 2 diabetes mellitus with hyperglycemia Erectile dysfunction Psoriasis Gout Obesity (BMI 30-39.9) Hypertriglyceridemia Hypertension Surgical History Hx of thyroidectomy Hx of biopsy Hx of tonsillectomy Family History Mother Bone cancer Brain cancer Sister Breast cancer in situ Other Myocardial infarct Social History (Updated 08/02/23 @ 12:58 by Tia Oro MD) Housing: House Alcohol intake: current Alcohol intake frequency: 3 or more drinks per day Comment: QD 2-3 drinks Patient Tobacco Use Status: Current someday Tobacco user Tobacco use type: Cigar Years Smoked: state 3 a year cigar e-Cigarette/Vaping Use: Never Used Second Hand Smoke Exposure: Yes service: No Current occupational status: employed Cognitive needs: No Hearing needs: No Vision needs: Yes Questionnaire Medicare Wellness Checkup [age] What gender do you identify with?: male During the past 4 weeks, how much have you been bothered by emotional problems such as feeling anxious, depressed, irritable, sad or downhearted, and blue?: not at all During the past 4 weeks, has your physical & emotional health limited your social activities with family, friends, neighbors, or groups?: not at all During the past 4 weeks, how much bodily pain have you generally had?: no pain During the past 4 weeks, was someone available to help you if you needed & wanted help?: yes, as much as I wanted During the past 4 weeks, what was the hardest physical activity you could do for at least 2 minutes?: very heavy Can you go shopping for groceries or clothes without someone's help?: Yes Can you prepare your own meals?: Yes Can you do your housework without help?: Yes Because of any health problems, do you need the help of another person with your personal care needs such as eating, bathing, dressing or getting around the house?: No Can you handle your own money without help?: Yes During the past 4 weeks, how would you rate your health in general?: excellent (flu for one month ) During the past 4 weeks how have things been going for you?: very bad; could hardly be worse Are you having difficulties driving your car?: no Do you always fasten your seat belt when you are in a car?: yes, usually During past 4 weeks, have you been bothered by the following: never: Sexual problems?, Trouble eating well?, Teeth or denture problems?, Problems using the telephone? and Tiredness or fatigue? and seldom: Falling or dizzy when standing up Have you fallen 2 or more times in the past year?: No Are you afraid of falling?: No Are you a smoker?: no During the past 4 weeks, how many drinks of wine, beer, or other alcoholic beverages did you have?: 10 or more per week Do you exercise for about 20 minutes 3 or more times a week?: yes, all the time Have you been given information to help with the following?: no: Hazards in your house that might hurt you? and no: Keeping track of your medications? How often do you have trouble taking medicines the way you have been told to take them?: I always take medicine as prescribed How confident are you that you can control & manage most of your health problems?: very confident What is your race?: White PHQ-9 Over the last 2 weeks, how often have you been bothered by any of the following problems? 1. Little interest or pleasure in doing things: not at all 2. Feeling down, depressed, or hopeless: not at all 3. Trouble falling or staying asleep, or sleeping too much: not at all 4. Feeling tired or having little energy: not at all 5. Poor appetite or overeating: not at all 6. Feeling bad about yourself - or that you are a failure or have let yourself or your family down: not at all 7. Trouble concentrating on things, such as reading the newspaper or watching television: not at all 8. Moving or speaking so slowly that other people could have noticed. Or the opposite - being so fidgety or restless that you have been moving around a lot more than usual: not at all 9. Thoughts that you would be better off or of hurting yourself in some way: not at all Total score: 0 Depression Screening Interpretation: Negative Depression Screening Done: Yes 88744 - PHQ-9 Billing: Yes Source: Developed by Drs. Berto Barreto, Janis Campuzano, Paramjit Ramires and colleagues, with an educational cy from [employer]. Review of Systems Const Denies poor appetite and Denies weakness Eyes Denies no additional complaints ENT Reports Normal hearing present, Denies dizziness, Denies nasal congestion, Denies tinnitus and Denies sore throat Card Denies chest pain, Denies syncope, Denies rapid heart rate and Denies dyspnea Resp Denies cough and Denies dyspnea GI Denies change in stool character, Reports constipation, Denies diarrhea, Denies nausea and Denies vomiting Denies dysuria and Denies urinary frequency Neuro Reports Normal hearing present, Denies confusion, Denies dizziness, Denies syncope and Denies weakness Psych Denies confusion Physical Exam Vital Signs: Last Vital Signs Pulse 91 08/02/23 12:32 BP 158/82 H 08/02/23 12:32 Pulse Ox 95 08/02/23 12:32 Oxygen Delivery Method Room Air 08/02/23 12:32 BMI result Body Mass Index 33.5 Const General: No confusion Orientation/consciousness: No confusion Neuro General: No confusion Cranial nerves: Yes Normal hearing present Immunizations pneumoc 20-dominique conj-dip cr(PF) 0.5 mL IM syringe Performing Provider: iTa Oro MD Performing Location: [facility] Administered by: YURIY Garnica on 08/02/23 14:22 Dose Route Admin Location Dispensed Lot Number Expiration Date NDC Franchise Sales Representative 0.5 mL IM Left Deltoid 0.5 mL [id number] 10/09/24 4793-9154-94 [employer] VIS Given Date VIS Provided VIS Publication Date 08/02/23 Single Vaccine 21 Eligibility Eligibility Date Funding Source Not VFC Eligible 08/02/23 Private Assessment & Plan Assessment & Plan (1) Medicare annual wellness visit, subsequent: Code(s): Z00.00 - Encounter for general adult medical examination without abnormal findings Plan: Keep well hydrated, eat healthy and keep active (2) Type 2 diabetes mellitus with hyperglycemia: Code(s): E11.65 - Type 2 diabetes mellitus with hyperglycemia Qualifiers: Diabetes mellitus mcfp insulin use: without supervisor bit and shank department use Qualified Code(s): E11.65 - Type 2 diabetes mellitus with hyperglycemia Plan: Decrease the amount of carbohydrate intake, pasta, bread, rice and potatoes are all sugar and that is aside from all the sweet stuff, remember that fruits are good but they are Sweet also. Hemoglobin A1c goal of less than 7.0 present only diet controlled (3) Obesity (BMI 30-39.9): Code(s): E66.9 - Obesity, unspecified Plan: Diet and exercise (4) Hypertension: Code(s): I10 - Essential (primary) hypertension Qualifiers: Hypertension type: essential hypertension Qualified Code(s): I10 - Essential (primary) hypertension Plan: Continue with blood pressure medication. Decrease salt intake and exercise on lisinopril 20 mg once a day amlodipine 2.5 mg once a day (5) Hypercholesterolemia: Code(s): E78.00 - Pure hypercholesterolemia, unspecified Plan: Avoid fried foods, chicken skin, eggs, butter margarine, pastries and meat. Be it pork or beef they have a lot of cholesterol LDL goal of less than 100 and triglyceride of less than 150. Patient on simvastatin 5 mg at bedtime gemfibrozil 600 mg once a day (6) Postsurgical hypothyroidism: Code(s): E89.0 - Postprocedural hypothyroidism Plan: Continue with thyroid medication at 125 mcg once a day and patient is being followed up by Endocrinology also. (7) LFT elevation: Code(s): R79.89 - Other specified abnormal findings of blood chemistry Plan: Awaiting for ultrasound results. Orders: Orders Pneumococcal 20 Immunization Today Z23 - Encounter for immunization Lipid Panel 3 Months E78.00 - Pure hypercholesterolemia, unspecified Comprehensive Met. Panel 3 Months E78.00 - Pure hypercholesterolemia, unspecified Hemoglobin A1c 3 Months E78.00 - Pure hypercholesterolemia, unspecified Medications: Changed From simvastatin 5 mg PO BEDTIME 90 tabs 3RF E78.00 - Pure hypercholesterolemia, unspecified To simvastatin 10 mg PO BEDTIME 90 days 90 tabs 3RF E78.00 - Pure hypercholesterolemia, unspecified Quality Reporting (2019) Depression/Bipolar (159/160/161/177) PHQ-9: Total score: 0 Coding Level of Care Code Medicare Subsequent (G0439) Diagnoses Medicare annual wellness visit, subsequent Z00.00 Type 2 diabetes mellitus with hyperglycemia, without long-term current use of insulin E11.65 Diabetes mellitus mcfp insulin use: without supervisor bit and shank department use Obesity (BMI 30-39.9) E66.9 Essential hypertension I10 Hypertension type: essential hypertension Hypercholesterolemia E78.00 Postsurgical hypothyroidism E89.0 LFT elevation R79.89
== END 2023-08-02 13:35 | disposition home or self-care (01) ==
PROVIDERS: PCP Internal Medicine; Visit Provider Internal Medicine
DX: Z00.00 Encounter for general adult medical examination without abnormal findings (principal); E11.65 Type 2 diabetes mellitus with hyperglycemia; E66.9 Obesity, unspecified; Z23 Encounter for immunization; Z68.33 Body mass index [BMI] 33.0-33.9, adult; I10 Essential (primary) hypertension; E78.00 Pure hypercholesterolemia, unspecified; E89.0 Postprocedural hypothyroidism; R79.89 Other specified abnormal findings of blood chemistry
CPT/HCPCS: 90471; 90677; 99213; G0439

== ENCOUNTER 2023-11-08 12:09 | Outpatient (REF) | payer MEDICARE, SELFPAY ==
[2023-11-08 14:16] LABS: Estimated Average Glucose 131 mg/dL; Hemoglobin A1c % 6.2 % (<6.0)
[2023-11-08 14:21] LABS: Alanine Aminotransferase 44 U/L (0-40); Albumin Level 4.5 g/dL (3.5-5.0); Alkaline Phosphatase 136 U/L (39-117); Anion Gap 14 (12-20); Aspartate Amino Transferase 49 U/L (5-37); Bilirubin Total 0.8 mg/dL (0.0-1.0); Blood Urea Nitrogen 14 mg/dL (9-16); Carbon Dioxide 23 mmol/L (22-29); Chloride 102 mmol/L (96-108); Cholesterol 180 mg/dL (<200); Estimated Glomerular Filt Rate > 60; Glucose Random 132 mg/dL (60-115); HDL Cholesterol 56 mg/dL (>40); LDL Cholesterol Calculated 95 mg/dL (<100); Sodium 135 mmol/L (135-145); Total Protein 8.2 g/dL (6.5-8.0); Triglycerides 145 mg/dL (<150)
== END 2023-11-08 12:10 | disposition home or self-care (01) ==
LOC: HO.HMGCLDS 12:09
PROVIDERS: PCP Internal Medicine; Visit Provider Internal Medicine
DX: E78.00 Pure hypercholesterolemia, unspecified (principal)
CPT/HCPCS: 36415; 80053; 80061; 83036

== ENCOUNTER 2023-11-13 09:59 | Outpatient (AMB) | payer MEDICARE, SELFPAY ==
[2023-11-13 10:01] VITALS: BP 152/86; PULSE 74; O2SAT 97; BMI 32.6
--- NOTE | 2023-11-13 10:01 | A.OFFPC_ITS ---
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 Allergies wool Allergy (Unknown, Verified 11/13/23 10:01) HIVES ALL OVER Medication List - Last Reconciled 11/13/23 by Tia Oro MD allopurinol 300 mg PO DAILY 90 days amlodipine 5 mg PO DAILY 30 days betamethasone dipropionate 0.05% 1 appl topical DAILY betamethasone valerate 0.1% 1 appl topical BID PRN gemfibrozil 600 mg PO DAILY hydrocortisone 2.5% 1 appl topical BID-TID PRN levothyroxine 125 mcg PO DAILY 90 days lisinopril 20 mg PO DAILY 30 days rosuvastatin 5 mg PO DAILY sildenafil 50 mg PO DAILY PRN ustekinumab (Stelara) 90 mg subcut Q4W Tobacco use date assessed: 11/13/23 Fall risk assessment: No Falls in past year Last assessed Fall Risk: 11/13/23 Dental Screening Dental Screen Date: 11/13/23 Did you have a dental visit in the last 12 months?: No Did you have a dental problem in the last 6 months where you did not have access to dental care?: No HPI 3 month f/u HPI0 Details 68-year-old obese male(noted 6 lb weight loss) last seen in July. Patient has diabetes mellitus controlled, hypertension hypercholesterolemia hy pothyroidism coming in for follow-up. [facility] Medical History (Updated 08/03/23 @ 18:27 by Tia Oro MD) LFT elevation Subclinical hyperthyroidism Upper respiratory infection Impacted cerumen of both ears Vitamin D deficiency Multinodular thyroid Acute sinusitis Enlarged thyroid Annual physical exam Hyperthyroidism Abnormal TSH Type 2 diabetes mellitus with hyperglycemia Erectile dysfunction Psoriasis Gout Obesity (BMI 30-39.9) Hypertriglyceridemia Hypertension Surgical History Hx of thyroidectomy Hx of biopsy Hx of tonsillectomy Family History Mother Bone cancer Brain cancer Sister Breast cancer in situ Other Myocardial infarct Social History (Updated 08/02/23 @ 12:58 by Tia Oro MD) Housing: House Alcohol intake: current Alcohol intake frequency: 3 or more drinks per day Comment: QD 2-3 drinks Patient Tobacco Use Status: Current someday Tobacco user Tobacco use type: Cigar Years Smoked: state 3 a year cigar e-Cigarette/Vaping Use: Never Used Second Hand Smoke Exposure: Yes service: No Current occupational status: employed Cognitive needs: No Hearing needs: No Vision needs: Yes Questionnaire PHQ-9 Over the last 2 weeks, how often have you been bothered by any of the following problems? 1. Little interest or pleasure in doing things: not at all 2. Feeling down, depressed, or hopeless: not at all 3. Trouble falling or staying asleep, or sleeping too much: not at all 4. Feeling tired or having little energy: not at all 5. Poor appetite or overeating: not at all 6. Feeling bad about yourself - or that you are a failure or have let yourself or your family down: not at all 7. Trouble concentrating on things, such as reading the newspaper or watching television: not at all 8. Moving or speaking so slowly that other people could have noticed. Or the opposite - being so fidgety or restless that you have been moving around a lot more than usual: not at all 9. Thoughts that you would be better off or of hurting yourself in some way: not at all Total score: 0 Depression Screening Interpretation: Negative Depression Screening Done: Yes 22116 - PHQ-9 Billing: Yes Source: Developed by Drs. Berto Barreto, Janis Campuzano, Paramjit Ramires and colleagues, with an educational cy from [employer]. Thrive Questionnaire Date Thrive assessed: 11/13/23 I am a: Patient What is your living situation today?: I have a steady place to live Within the past 12 months, did the food you bought not last and you didn't have the money to get more?: Never true Within the past 12 months, did you worry whether your food would run out before you got money to buy more?: Never true Do you have trouble paying for medicines?: No Do you have trouble getting transportation to medical appointments?: No Do you have trouble paying your heating and electricity bill?: No Do you have trouble taking care of your child, family member or friend?: No Do you have trouble with day-to-day activities such as bathing, preparing meals, shopping, managing finances, etc.?: No Are you currently unemployed and looking for a job?: No Are you interested in more education?: No Please select the resources that you would like help with: None Currently or been in a relationship where the following occur: no concerns reported THRIVE Score: 0 AUDIT C Alcohol Use Questionnaire (AUDIT-C) 1. How often do you have a drink containing alcohol?: 4 or more times a week 2. How many drinks containing alcohol do you have on a typical day when you are drinking?: 3 or 4 3. How often do you have six or more drinks on one occasion?: Less than monthly Total Score: 6 VENKATESH-7 AMB Questionnaire VENKATESH-7 Date VENKATESH - 7 assessed: 11/13/23 Feeling nervous, anxious, or on edge: 0 = Not at all Not being able to stop or control worryin = Not at all Worrying too much about different things: 0 = Not at all Trouble relaxin = Not at all Being so restless that it is hard to sit still: 0 = Not at all Becoming easily annoyed or irritable: 0 = Not at all Feeling afraid as if something awful might happen: 0 = Not at all Total VENKATESH-7 score (0-4 normal; 5-9 mild; 10-14 moderate; 15-21 severe): 0 Source: Developed by Drs. Berto Barreto, Janis Campuzano, Paramjit Ramires and colleagues, with an educational cy from [employer]. VENKATESH-7 Assessment Billing VENKATESH-7 Assessment Tool: VENKATESH-7 Assessment 98362 Physical exam (Primary Care) Vital Signs: Last Vital Signs Pulse 74 11/13/23 10:01 BP 152/86 H 11/13/23 10:01 Pulse Ox 97 11/13/23 10:01 Oxygen Delivery Method Room Air 11/13/23 10:01 BMI result Body Mass Index 32.6 Tobacco/Smoking Status: Tobacco use Status Tobacco use date assessed 11/13/23 11/13/23 10:02 Patient Tobacco Use Status Current someday Tobacco 11/13/23 10:02 Tobacco use type Cigar 11/13/23 10:02 e-Cigarette/Vaping Use Never Used 11/13/23 10:02 PHQ-9: PHQ-9 Score PHQ-9: Total score 0 11/13/23 10:07 Depression Screening Interpretation: Negative Thrive Assessment: Date of Thrive Assessment Date Thrive assessed 11/13/23 11/13/23 10:10 Currently or been in a relationship where the following occur: no concerns reported Const General: alert; No acute distress Eyes Conjunctivae: conjunctivae normal Resp Auscultation: clear to auscultation bilaterally Cardio Rate: regular rate Rhythm: regular rhythm GI Inspection: Yes normal to inspection Extrem General: Yes normal to inspection and No edema Assessment and Plan Assessment & Plan (1) Hepatic steatosis: Comment: July 2023 Code(s): K76.0 - Fatty (change of) liver, not elsewhere classified Plan: Low-fat diet and exercise. Noted weight loss (2) Postsurgical hypothyroidism: Code(s): E89.0 - Postprocedural hypothyroidism Plan: Continue with thyroid medication (3) Hypercholesterolemia: Code(s): E78.00 - Pure hypercholesterolemia, unspecified Plan: Avoid fried foods, chicken skin, eggs, butter margarine, pastries and meat. Be it pork or beef they have a lot of cholesterol LDL goal of less than on gemfibrozil 600 mg once a day and simvastatin 10 mg at bedtime 100 and triglyceride of less than 150. With the amlodipine for the blood pressure there will need to change simvastatin (4) Type 2 diabetes mellitus with hyperglycemia: Code(s): E11.65 - Type 2 diabetes mellitus with hyperglycemia Qualifiers: Diabetes mellitus nursing home insulin use: without nursing home use Qualified Code(s): E11.65 - Type 2 diabetes mellitus with hyperglycemia Plan: Decrease the amount of carbohydrate intake, pasta, bread, rice and potatoes are all sugar and that is aside from all the sweet stuff, remember that fruits are good but they are Sweet also. Hemoglobin A1c goal of less than 7.0. (5) Obesity (BMI 30-39.9): Code(s): E66.9 - Obesity, unspecified Plan: Diet and exercise (6) Hypertension: Code(s): I10 - Essential (primary) hypertension Qualifiers: Hypertension type: essential hypertension Qualified Code(s): I10 - Essential (primary) hypertension Plan: Continue with blood pressure medication. Decrease salt intake and exercise on lisinopril 20 mg once a day and amlodipine 2.5 mg once a day Orders: Orders Lipid Panel 3 Months E78.00 - Pure hypercholesterolemia, unspecified Comprehensive Met. Panel 3 Months E78.00 - Pure hypercholesterolemia, unspecified Medications: New rosuvastatin 5 mg PO DAILY 30 tabs 4RF E78.00 - Pure hypercholesterolemia, unspecified Changed From amlodipine 2.5 mg PO DAILY 30 days 90 tabs 2RF I10 - Essential (primary) hypertension To amlodipine 5 mg PO DAILY 30 days 30 tabs 2RF I10 - Essential (primary) hypertension Discontinued simvastatin Discontinued Reason: Doctor's Order 10 mg PO BEDTIME 90 days 90 tabs 3RF E78.00 - Pure hypercholesterolemia, unspecified Coding Level of Care Code Est Pt Level 4 (63776) Diagnoses Hepatic steatosis K76.0 Postsurgical hypothyroidism E89.0 Hypercholesterolemia E78.00 Type 2 diabetes mellitus with hyperglycemia, without long-term current use of insulin E11.65 Diabetes mellitus local intermodal truck driver insulin use: without local intermodal truck driver use Obesity (BMI 30-39.9) E66.9 Essential hypertension I10 Hypertension type: essential hypertension Additional Codes VENKATESH-7 Assessment Billing - VENKATESH-7 Assessment Tool: VENKATESH-7 Assessment [id number] ([id number])
== END 2023-11-13 10:50 | disposition home or self-care (01) ==
PROVIDERS: PCP Internal Medicine; Visit Provider Internal Medicine
DX: E11.65 Type 2 diabetes mellitus with hyperglycemia (principal); K76.0 Fatty (change of) liver, not elsewhere classified; E89.0 Postprocedural hypothyroidism; Z68.32 Body mass index [BMI] 32.0-32.9, adult; E78.00 Pure hypercholesterolemia, unspecified; E66.9 Obesity, unspecified; I10 Essential (primary) hypertension
CPT/HCPCS: 99214

== ENCOUNTER 2024-03-26 11:24 | Outpatient (REF) | payer MEDICARE, SELFPAY ==
[2024-03-26 14:09] LABS: Alanine Aminotransferase 37 U/L (0-40); Albumin Level 4.2 g/dL (3.5-5.0); Alkaline Phosphatase 117 U/L (39-117); Anion Gap 10 (12-20); Aspartate Amino Transferase 34 U/L (5-37); Bilirubin Total 0.9 mg/dL (0.0-1.0); Blood Urea Nitrogen 15 mg/dL (9-16); Calcium 9.3 mg/dL (8.4-10.2); Carbon Dioxide 25 mmol/L (22-29); Chloride 104 mmol/L (96-108); Cholesterol 148 mg/dL (<200); Estimated Glomerular Filt Rate > 60; Glucose Random 144 mg/dL (60-115); HDL Cholesterol 47 mg/dL (>40); LDL Cholesterol Calculated 71 mg/dL (<100); Potassium 4.2 mmol/L (3.3-5.1); Sodium 135 mmol/L (135-145); Total Protein 7.5 g/dL (6.5-8.0); Triglycerides 153 mg/dL (<150)
== END 2024-03-26 11:25 | disposition home or self-care (01) ==
LOC: HO.HMGCLDS 11:24
PROVIDERS: PCP Internal Medicine; Visit Provider Internal Medicine
DX: E78.00 Pure hypercholesterolemia, unspecified (principal)
CPT/HCPCS: 36415; 80053; 80061

== ENCOUNTER 2024-04-02 10:16 | Outpatient (AMB) | payer MEDICARE, SELFPAY ==
[2024-04-02 10:19] VITALS: BP 154/84; PULSE 84; O2SAT 97; BMI 32.1
--- NOTE | 2024-04-02 10:19 | A.OFFPC_ITS ---
Vital Signs 04/02/24 10:19 04/02/24 10:45 Height 5 ft 11 in Weight 230 lb BMI 32.1 BP 154/84 H 144/80 H Blood Pressure Location Lt brachial Lt brachial Position Sitting Sitting Pulse 84 Pulse Source Pulse Oximeter Pulse Oximetry (%) 97 Oxygen Delivery Method Room Air Intake Visit Reasons: HTN , Cholesterol Allergies wool Allergy (Unknown, Verified 04/02/24 10:19) HIVES ALL OVER Medication List - Last Reconciled 04/02/24 by Tia Oro MD allopurinol 300 mg PO DAILY 90 days amlodipine 5 mg PO DAILY 30 days betamethasone dipropionate 0.05% 1 appl topical DAILY betamethasone valerate 0.1% 1 appl topical BID PRN gemfibrozil 600 mg PO DAILY hydrocortisone 2.5% 1 appl topical BID-TID PRN levothyroxine 125 mcg PO DAILY 90 days lisinopril 40 mg PO DAILY 30 days rosuvastatin 5 mg PO DAILY sildenafil 50 mg PO DAILY PRN ustekinumab (Stelara) 90 mg subcut Q4W Tobacco use date assessed: 11/13/23 Fall risk assessment: No Falls in past year Last assessed Fall Risk: 04/02/24 Dental Screening Dental Screen Date: 11/13/23 HPI HTN , Cholesterol HPI Details 68-year-old obese male with a history of hypothyroidism hypercholesterolemia diabetes mellitus hypertension hepatic steatosis coming in for follow-up last seen in 11/29/2023 patient is here for follow-up. Colonoscopy was done in 2019. [facility] Medical History (Updated 08/03/23 @ 18:27 by Tia Oro MD) LFT elevation Subclinical hyperthyroidism Upper respiratory infection Impacted cerumen of both ears Vitamin D deficiency Multinodular thyroid Acute sinusitis Enlarged thyroid Annual physical exam Hyperthyroidism Abnormal TSH Type 2 diabetes mellitus with hyperglycemia Erectile dysfunction Psoriasis Gout Obesity (BMI 30-39.9) Hypertriglyceridemia Hypertension Surgical History Hx of thyroidectomy Hx of biopsy Hx of tonsillectomy Family History (Updated 04/02/24 @ 10:20 by Luz Daniel CMA) Mother Bone cancer Brain cancer Sister Breast cancer in situ Other Myocardial infarct Social History (Updated 08/02/23 @ 12:58 by Tia Oro MD) Housing: House Alcohol intake: current Alcohol intake frequency: 3 or more drinks per day Comment: QD 2-3 drinks Patient Tobacco Use Status: Current someday Tobacco user Tobacco use type: Cigar Years Smoked: state 3 a year cigar e-Cigarette/Vaping Use: Never Used Second Hand Smoke Exposure: Yes service: No Current occupational status: employed Cognitive needs: No Hearing needs: No Vision needs: Yes Questionnaire PHQ-9 Over the last 2 weeks, how often have you been bothered by any of the following problems? 1. Little interest or pleasure in doing things: not at all 2. Feeling down, depressed, or hopeless: not at all 3. Trouble falling or staying asleep, or sleeping too much: not at all 4. Feeling tired or having little energy: not at all 5. Poor appetite or overeating: not at all 6. Feeling bad about yourself - or that you are a failure or have let yourself or your family down: not at all 7. Trouble concentrating on things, such as reading the newspaper or watching television: not at all 8. Moving or speaking so slowly that other people could have noticed. Or the opposite - being so fidgety or restless that you have been moving around a lot more than usual: not at all 9. Thoughts that you would be better off or of hurting yourself in some way: not at all Total score: 0 Depression Screening Interpretation: Negative Depression Screening Done: Yes 42608 - PHQ-9 Billing: Yes Source: Developed by Drs. Berto Barreto, Janis Campuzano, Paramjit Ramires and colleagues, with an educational cy from [employer]. Thrive Questionnaire Date Thrive assessed: 11/13/23 AUDIT C Alcohol Use Questionnaire (AUDIT-C) 1. How often do you have a drink containing alcohol?: 4 or more times a week 2. How many drinks containing alcohol do you have on a typical day when you are drinking?: 3 or 4 3. How often do you have six or more drinks on one occasion?: Less than monthly Total Score: 6 VENKATESH-7 AMB Questionnaire VENKATESH-7 Date VENKATESH - 7 assessed: 11/13/23 Source: Developed by Drs. Berto Barreto, Janis Campuzano, Paramjit Ramires and colleagues, with an educational cy from [employer]. Physical exam (Primary Care) Vital Signs: Last Vital Signs Pulse 84 04/02/24 10:19 BP 154/84 H 04/02/24 10:19 Pulse Ox 97 04/02/24 10:19 Oxygen Delivery Method Room Air 04/02/24 10:19 BMI result Body Mass Index 32.1 Tobacco/Smoking Status: Tobacco use Status Tobacco use date assessed 11/13/23 04/02/24 10:20 Patient Tobacco Use Status Current someday Tobacco 04/02/24 10:20 Tobacco use type Cigar 04/02/24 10:20 e-Cigarette/Vaping Use Never Used 04/02/24 10:20 PHQ-9: PHQ-9 Score PHQ-9: Total score 0 04/02/24 10:35 Depression Screening Interpretation: Negative Thrive Assessment: Date of Thrive Assessment Date Thrive assessed 11/13/23 04/02/24 10:20 Const General: alert; No acute distress Eyes Conjunctivae: conjunctivae normal Resp Auscultation: clear to auscultation bilaterally Cardio Rate: regular rate Rhythm: regular rhythm GI Inspection: Yes normal to inspection Extrem General: Yes normal to inspection and No edema Office Procedures Flu Questionnaire Does the patient have a severe egg allergy?: No Does the patient have severe life threatening allergies?: No Does the patient have a fever or illness today?: No Has the patient ever had Guillain-Mulberry Syndrome?: No Has the patient ever had any past reaction to a flu shot?: No Results AMB Hemoglobin A1c AMB Hemoglobin A1c 6.3 % Last Edit by Luz Daniel CMA on 04/02/24 10 :36 Immunizations Fluarix Triv [id number] (PF) 45 mcg (15 mcg x 3)/0.5 mL IM syringe Performing Provider: Tia Oro MD [facility] Documented (not given) by: Luz Daniel CMA on 04/02/24 10:30 Reason Not Given: Patient Refused Results Reviewed Results Reviewed: Laboratory Last Values Hgb A1c (Clinic) 6.3 % (4.0-6.0) H 04/02/24 10:21 Coding Level of Care Code Est Pt Level 4 (91507) Complex EM visit Add On G2211 Diagnoses Type 2 diabetes mellitus with hyperglycemia, without long-term current use of insulin E11.65 Diabetes mellitus skilled nursing insulin use: without skilled nursing use Obesity (BMI 30-39.9) E66.9 Essential hypertension I10 Hypertension type: essential hypertension Hypercholesterolemia E78.00 Postsurgical hypothyroidism E89.0 Assessment & Plan Assessment & Plan (1) Type 2 diabetes mellitus with hyperglycemia: Code(s): E11.65 - Type 2 diabetes mellitus with hyperglycemia Category: Medical Qualifiers: Diabetes mellitus intermediate card tender insulin use: without skilled nursing use Qualified Code(s): E11.65 - Type 2 diabetes mellitus with hyperglycemia Plan: Decrease the amount of carbohydrate intake, pasta, bread, rice and potatoes are all sugar and that is aside from all the sweet stuff, remember that fruits are good but they are Sweet also. Hemoglobin A1c goal of less than 7.0. On diet control. (2) Obesity (BMI 30-39.9): Code(s): E66.9 - Obesity, unspecified Category: Medical Plan: Diet and exercise (3) Hypertension: Code(s): I10 - Essential (primary) hypertension Category: Medical Qualifiers: Hypertension type: essential hypertension Qualified Code(s): I10 - Essential (primary) hypertension Plan: Continue with blood pressure medication. Decrease salt intake and exercise lisinopril 20 mg once a day amlodipine 5 mg once a day (4) Hypercholesterolemia: Code(s): E78.00 - Pure hypercholesterolemia, unspecified Category: Medical Plan: Avoid fried foods, chicken skin, eggs, butter margarine, pastries and meat. Be it pork or beef they have a lot of cholesterol LDL goal of less than 100 and triglyceride of less than 150 on gemfibrozil 600 mg once a day and rosuvastatin 5 mg once a day (5) Postsurgical hypothyroidism: Code(s): E89.0 - Postprocedural hypothyroidism Category: Medical Plan: Continue with thyroid medication Orders: Orders AMB Hemoglobin A1c Today Z13.9 - Encounter for screening, unspecified Influenza [id number] Immunization Today Z23 - Encounter for immunization Medications: Changed From sildenafil administer 30 minutes to 4 hours before activity 50 mg PO DAILY PRN 14 tabs 0RF sexual activity N52.9 - Male erectile dysfunction, unspecified To sildenafil administer 30 minutes to 4 hours before activity 100 mg PO DAILY PRN 14 tabs 0RF sexual activity N52.9 - Male erectile dysfunction, unspecified From lisinopril 20 mg PO DAILY 30 days 90 tabs 0RF I10 - Essential (primary) hypertension To lisinopril 40 mg PO DAILY 30 days 30 tabs 3RF I10 - Essential (primary) hypertension Refilled levothyroxine 125 mcg PO DAILY 90 days 90 tabs 1RF rosuvastatin 5 mg PO DAILY 90 tabs 2RF E78.00 - Pure hypercholesterolemia, unspecified allopurinol 300 mg PO DAILY 90 days 90 tabs 2RF
[2024-04-02 10:45] VITALS: BP 144/80
== END 2024-04-02 11:07 | disposition home or self-care (01) ==
PROVIDERS: PCP Internal Medicine; Visit Provider Internal Medicine
DX: E11.65 Type 2 diabetes mellitus with hyperglycemia (principal); E66.9 Obesity, unspecified; Z68.32 Body mass index [BMI] 32.0-32.9, adult; I10 Essential (primary) hypertension; E78.00 Pure hypercholesterolemia, unspecified; E89.0 Postprocedural hypothyroidism

== ENCOUNTER → 2024-04-02 10:16 | Outpatient (BNVA) | payer MEDICARE, SELFPAY | PROVIDERS: PCP Internal Medicine; Visit Provider Internal Medicine | DX: E11.65 Type 2 diabetes mellitus with hyperglycemia (principal); E66.9 Obesity, unspecified; Z68.32 Body mass index [BMI] 32.0-32.9, adult; I10 Essential (primary) hypertension; E78.00 Pure hypercholesterolemia, unspecified; E89.0 Postprocedural hypothyroidism; Z79.899 Other long term (current) drug therapy; Z28.21 Immunization not carried out because of patient refusal | CPT/HCPCS: 83036; 96127; 99212 ==

== ENCOUNTER 2024-05-07 10:52 | Outpatient (REF) | payer MEDICARE, SELFPAY ==
[2024-05-07 13:24] LABS: MANUAL DIFF FLAG NO
[2024-05-07 13:31] LABS: Basophils Absolute Auto 0.1 X10*3/uL (0.0-0.2); Basophils Percent Auto 0.9 % (0-2); Eosinophils Absolute Auto 0.2 X10*3/uL (0.0-0.4); Eosinophils Percent Auto 2.5 % (0-4); Hematocrit 42.6 % (42.0-52.0); Hemoglobin 14.7 g/dl (14.0-18.0); Imm Gran Abs Auto 0.03 X10*3/uL (0.00-0.03); Imm Gran Pct Auto 0.5 % (0.0-0.4); Lymphocytes Absolute Auto 2.6 X10*3/uL (1.2-4.9); Lymphocytes Percent Auto 39.7 % (20-40); Mean Corpuscular HGB Conc 34.5 g/dl (31.0-36.0); Mean Corpuscular Volume 95.5 fL (80.0-98.0); Mean Platelet Volume 11.2 fL (9.4-12.4); Monocytes Absolute Auto 0.6 X10*3/uL (0.1-1.2); Monocytes Percent Auto 9.4 % (2-11); Neutrophils Absolute Auto 3.1 x10*3/uL (2.0-8.3); Platelet Count 182 X10*3/uL (160-400); Red Blood Count 4.46 X10*6/uL (4.60-5.80); Red Cell Distribution Width 12.2 % (11.0-16.0); White Blood Count 6.5 X10*3/uL (4.8-10.8)
[2024-05-07 13:54] LABS: Albumin Level 4.4 g/dL (3.5-5.0); Anion Gap 15 (12-20); Bilirubin Total 0.8 mg/dL (0.0-1.0); Blood Urea Nitrogen 15 mg/dL (9-16); Calcium 9.3 mg/dL (8.4-10.2); Carbon Dioxide 23 mmol/L (22-29); Chloride 102 mmol/L (96-108); Estimated Glomerular Filt Rate > 60; Glucose Random 155 mg/dL (60-115); Potassium 4.5 mmol/L (3.3-5.1); Sodium 135 mmol/L (135-145)
[2024-05-07 13:55] LABS: Alkaline Phosphatase 136 U/L (39-117); Aspartate Amino Transferase 97 U/L (5-37)
[2024-05-07 14:16] LABS: Alanine Aminotransferase 65 U/L (0-40)
[2024-05-10 11:04] LABS: TS Negative Control Passed; TS Panel A 1; TS Panel B 0; TS Positive Control Passed; TSpotTB Negative (Negative)
== END 2024-05-07 10:53 | disposition home or self-care (01) ==
LOC: HO.HMGCLDS 10:52
PROVIDERS: PCP Internal Medicine; Visit Provider Dermatology
DX: L40.0 Psoriasis vulgaris (principal)
CPT/HCPCS: 36415; 80053; 85025; 86481

== ENCOUNTER 2024-07-19 10:45 | Outpatient (REF) | payer MEDICARE, SELFPAY ==
[2024-07-19 14:11] LABS: Creatinine Urine 156.77 mg/dL
== END 2024-07-19 10:46 | disposition home or self-care (01) ==
LOC: HO.HMGCLDS 10:45
PROVIDERS: PCP Internal Medicine; Visit Provider Internal Medicine
DX: E11.65 Type 2 diabetes mellitus with hyperglycemia (principal)
CPT/HCPCS: 82570

== ENCOUNTER 2024-07-23 11:14 | Outpatient (AMB) | payer MEDICARE, SELFPAY ==
[2024-07-23 11:25] VITALS: BP 140/82; PULSE 85; O2SAT 98; BMI 33.2
--- NOTE | 2024-07-23 11:25 | MHC.PC.OV ---
Vital Signs 07/23/24 11:25 Height 5 ft 11 in Weight 238 lb BMI 33.2 BP 140/82 H Blood Pressure Location Lt brachial Position Sitting Pulse 85 Pulse Source Pulse Oximeter Pulse Oximetry (%) 98 Oxygen Delivery Method Room Air Intake Visit Reasons: Hypertension Allergies wool Allergy (Unknown, Verified 07/23/24 11:25) HIVES ALL OVER Tobacco use date assessed: 07/23/24 Fall risk assessment: No Falls in past year Last assessed Fall Risk: 07/23/24 Dental Screening Dental Screen Date: 07/23/24 Did you have a dental visit in the last 12 months?: Yes Did you have a dental problem in the last 6 months where you did not have access to dental care?: No Was dental information given to patient?: Patient has dentist HPI Hypertension HPI Details The patient is a 68-year-old male presenting with hypertension management and routine follow-up for chronic conditions. He has a history of multiple chronic conditions, including hypertension, hypercholesterolemia, diabetes mellitus, gout, psoriasis, hypothyroidism, hepatic steatosis, and obesity. His last colonoscopy was in 2018. Recent blood work done on May 07, 2024, showed no anemia, stable electrolytes, stable renal function, and elevated liver function with ultrasound confirming hepatic steatosis. The last cholesterol test was conducted in March 2024, with the LDL found to be within the goal of less than 100 mg/dL. The patient is following a low-fat diet and exercise regime with an A1c goal of less than 7.0%, and his recent A1c levels have been between 6.2 and 6.3. The patient is on diet control and takes lisinopril 40 mg daily and amlodipine 5 mg daily for blood pressure. His cholesterol management includes rosuvastatin 5 mg daily. At home, his blood pressure readings have been variable, ranging from 138/78 to 158/70 mmHg, with increased readings recently. It's noted that currently, at 238 pounds, he has gained weight from his previous recorded weight of 230 pounds in March 2024. FORMERLY [facility], [facility] Medical History (Updated 07/23/24 @ 12:09 by Tia Oro MD) LFT elevation Subclinical hyperthyroidism Upper respiratory infection Impacted cerumen of both ears Vitamin D deficiency Multinodular thyroid Acute sinusitis Enlarged thyroid Annual physical exam Hyperthyroidism Abnormal TSH Type 2 diabetes mellitus with hyperglycemia Erectile dysfunction Psoriasis Gout Obesity (BMI 30-39.9) Hypertriglyceridemia Hypertension Surgical History Hx of thyroidectomy Hx of biopsy Hx of tonsillectomy Family History (Updated 04/02/24 @ 10:20 by Luz Daniel CMA) Mother Bone cancer Brain cancer Sister Breast cancer in situ Other Myocardial infarct Social History (Updated 08/02/23 @ 12:58 by Tia Oro MD) Housing: House Alcohol intake: current Alcohol intake frequency: 3 or more drinks per day Comment: QD 2-3 drinks Patient Tobacco Use Status: Current someday Tobacco user Tobacco use type: Cigar Years Smoked: state 3 a year cigar e-Cigarette/Vaping Use: Never Used Second Hand Smoke Exposure: Yes service: No Current occupational status: employed Cognitive needs: No Hearing needs: No Vision needs: Yes Questionnaire PHQ-9 Over the last 2 weeks, how often have you been bothered by any of the following problems? 1. Little interest or pleasure in doing things: not at all 2. Feeling down, depressed, or hopeless: not at all 3. Trouble falling or staying asleep, or sleeping too much: not at all 4. Feeling tired or having little energy: not at all 5. Poor appetite or overeating: not at all 6. Feeling bad about yourself - or that you are a failure or have let yourself or your family down: not at all 7. Trouble concentrating on things, such as reading the newspaper or watching television: not at all 8. Moving or speaking so slowly that other people could have noticed. Or the opposite - being so fidgety or restless that you have been moving around a lot more than usual: not at all 9. Thoughts that you would be better off or of hurting yourself in some way: not at all Total score: 0 Depression Screening Interpretation: Negative Depression Screening Done: Yes 50646 - PHQ-9 Billing: Yes Source: Developed by Drs. Berto Barreto, Janis Campuzano, Paramjit Ramires and colleagues, with an educational cy from [employer]. Thrive Questionnaire Date Thrive assessed: 07/23/24 I am a: Patient What is your living situation today?: I have a steady place to live Within the past 12 months, did the food you bought not last and you didn't have the money to get more?: Never true Within the past 12 months, did you worry whether your food would run out before you got money to buy more?: Never true Do you have trouble paying for medicines?: No Do you have trouble getting transportation to medical appointments?: No Do you have trouble paying your heating and electricity bill?: No Do you have trouble taking care of your child, family member or friend?: No Do you have trouble with day-to-day activities such as bathing, preparing meals, shopping, managing finances, etc.?: No Are you currently unemployed and looking for a job?: No Are you interested in more education?: No Currently or been in a relationship where the following occur: No concerns reported THRIVE Score: 0 AUDIT C Alcohol Use Questionnaire (AUDIT-C) 1. How often do you have a drink containing alcohol?: 4 or more times a week 2. How many drinks containing alcohol do you have on a typical day when you are drinking?: 3 or 4 3. How often do you have six or more drinks on one occasion?: Less than monthly Total Score: 6 VENKATESH-7 AMB Questionnaire VENKATESH-7 Date VENKATESH - 7 assessed: 07/23/24 Feeling nervous, anxious, or on edge: 0 = Not at all Not being able to stop or control worryin = Not at all Worrying too much about different things: 0 = Not at all Trouble relaxin = Not at all Being so restless that it is hard to sit still: 0 = Not at all Becoming easily annoyed or irritable: 0 = Not at all Feeling afraid as if something awful might happen: 0 = Not at all Total VENKATESH-7 score (0-4 normal; 5-9 mild; 10-14 moderate; 15-21 severe): 0 Source: Developed by Drs. Berto Barreto, Janis aCmpuzano, Paramjit Ramires and colleagues, with an educational cy from [employer]. Physical exam (Primary Care) Vital Signs: Last Vital Signs Pulse 85 07/23/24 11:25 BP 140/82 H 07/23/24 11:25 Pulse Ox 98 07/23/24 11:25 Oxygen Delivery Method Room Air 07/23/24 11:25 BMI result Body Mass Index 33.2 Tobacco/Smoking Status: Tobacco use Status Tobacco use date assessed 07/23/24 07/23/24 11:26 Patient Tobacco Use Status Current someday Tobacco 07/23/24 11:26 Tobacco use type Cigar 07/23/24 11:26 e-Cigarette/Vaping Use Never Used 07/23/24 11:26 PHQ-9: PHQ-9 Score PHQ-9: Total score 0 07/23/24 11:52 Depression Screening Interpretation: Negative Thrive Assessment: Date of Thrive Assessment Date Thrive assessed 07/23/24 07/23/24 11:26 Currently or been in a relationship where the following occur: No concerns reported Const General: alert; No acute distress Eyes Conjunctivae: conjunctivae normal Resp Auscultation: clear to auscultation bilaterally Cardio Rate: regular rate Rhythm: regular rhythm GI Inspection: Yes normal to inspection Extrem General: Yes normal to inspection and No edema Coding Level of Care Code Est Pt Level 4 (54460) Complex EM visit Add On G2211 Diagnoses Hepatic steatosis K76.0 Type 2 diabetes mellitus with hyperglycemia, without long-term current use of insulin E11.65 Diabetes mellitus medical terminologist insulin use: without mcfp use Obesity (BMI 30-39.9) E66.9 Essential hypertension I10 Hypertension type: essential hypertension Hypercholesterolemia E78.00 Postsurgical hypothyroidism E89.0 Additional Codes PHQ-9 - 58970 - PHQ-9 Billing: Yes ([id number]) Assessment & Plan Assessment & Plan (1) Hepatic steatosis: Comment: July 2023 Code(s): K76.0 - Fatty (change of) liver, not elsewhere classified Category: Medical Plan: Low-fat diet and exercise (2) Type 2 diabetes mellitus with hyperglycemia: Comment: Dr. Christianson Code(s): E11.65 - Type 2 diabetes mellitus with hyperglycemia Category: Medical Qualifiers: Diabetes mellitus medical terminologist insulin use: without mcfp use Qualified Code(s): E11.65 - Type 2 diabetes mellitus with hyperglycemia Plan: Decrease the amount of carbohydrate intake, pasta, bread, rice and potatoes are all sugar and that is aside from all the sweet stuff, remember that fruits are good but they are Sweet also. Hemoglobin A1c goal of less than 7.0. On diet control (3) Obesity (BMI 30-39.9): Code(s): E66.9 - Obesity, unspecified Category: Medical Plan: Diet and exercise (4) Hypertension: Code(s): I10 - Essential (primary) hypertension Category: Medical Qualifiers: Hypertension type: essential hypertension Qualified Code(s): I10 - Essential (primary) hypertension Plan: Continue with blood pressure medication. Decrease salt intake and exercise takes lisinopril 40 mg once a day amlodipine 5 mg once a day (5) Hypercholesterolemia: Code(s): E78.00 - Pure hypercholesterolemia, unspecified Category: Medical Plan: Avoid fried foods, chicken skin, eggs, butter margarine, pastries and meat. Be it pork or beef they have a lot of cholesterol LDL goal of less than 100 and triglyceride of less than 150 on rosuvastatin 5 mg once a day (6) Postsurgical hypothyroidism: Code(s): E89.0 - Postprocedural hypothyroidism Category: Medical Plan: Continue with thyroid medication Plan - Increase amlodipine to 10 mg daily to achieve better blood pressure control. - Continue lisinopril 40 mg daily. - Maintain rosuvastatin 5 mg daily for cholesterol management. - Reinforce adherence to a low-fat diet, exercise regime, and weight management to address obesity. - Monitor blood glucose levels to ensure diabetes remains within target A1c goal of less than 7%. - Reassess liver function in relation to hepatic steatosis as necessary. - Educate on proper home blood pressure monitoring technique and advise the relaxation during measurement. - Encourage indoor exercise routine due to cold weather affecting outdoor activity. - Recommend follow-up in three months with routine blood work prior to the visit to monitor the efficacy of interventions. Orders: Orders Complete Blood Count Auto Diff 3 Months . - Type 2 diabetes mellitus with hyperglycemia Comprehensive Met. Panel 3 Months . - Type 2 diabetes mellitus with hyperglycemia Lipid Panel 3 Months E11. - Type 2 diabetes mellitus with hyperglycemia, E78.00 - Pure hypercholesterolemia, unspecified Hemoglobin A1c 3 Months . - Type 2 diabetes mellitus with hyperglycemia Free T4 (Free Thyroxine) 3 Months . - Type 2 diabetes mellitus with hyperglycemia Thyroid Stimulating Hormone 3 Months . - Type 2 diabetes mellitus with hyperglycemia Vitamin B12 and Folate 3 Months . - Type 2 diabetes mellitus with hyperglycemia Prostate Specific Antigen Scr 3 Months .65 - Type 2 diabetes mellitus with hyperglycemia Medications: Changed From amlodipine 5 mg PO DAILY 30 days 30 tabs 2RF I10 - Essential (primary) hypertension To amlodipine 10 mg PO DAILY 30 tabs 2RF 30 days I10 - Essential (primary) hypertension
== END 2024-07-23 12:14 | disposition home or self-care (01) ==
PROVIDERS: PCP Internal Medicine; Visit Provider Internal Medicine
DX: E11.65 Type 2 diabetes mellitus with hyperglycemia (principal); K76.0 Fatty (change of) liver, not elsewhere classified; E66.9 Obesity, unspecified; Z68.33 Body mass index [BMI] 33.0-33.9, adult; I10 Essential (primary) hypertension; E78.00 Pure hypercholesterolemia, unspecified; E89.0 Postprocedural hypothyroidism

== ENCOUNTER → 2024-07-23 11:14 | Outpatient (BNVA) | payer MEDICARE, SELFPAY | PROVIDERS: PCP Internal Medicine; Visit Provider Internal Medicine | DX: K76.0 Fatty (change of) liver, not elsewhere classified (principal); E11.65 Type 2 diabetes mellitus with hyperglycemia; E66.9 Obesity, unspecified; I10 Essential (primary) hypertension; E78.00 Pure hypercholesterolemia, unspecified; E89.0 Postprocedural hypothyroidism | CPT/HCPCS: 96127; 99212 ==

== ENCOUNTER 2024-10-16 11:07 | Outpatient (REF) | payer MEDICARE, SELFPAY ==
[2024-10-16 13:11] LABS: MANUAL DIFF FLAG NO
[2024-10-16 13:25] LABS: Basophils Absolute Auto 0.1 X10*3/uL (0.0-0.2); Basophils Percent Auto 1.3 % (0-2); Eosinophils Absolute Auto 0.2 X10*3/uL (0.0-0.4); Eosinophils Percent Auto 2.9 % (0-4); Hematocrit 37.5 % (42.0-52.0); Hemoglobin 13.5 g/dl (14.0-18.0); Imm Gran Abs Auto 0.02 X10*3/uL (0.00-0.03); Imm Gran Pct Auto 0.3 % (0.0-0.4); Lymphocytes Absolute Auto 2.4 X10*3/uL (1.2-4.9); Lymphocytes Percent Auto 40.5 % (20-40); Mean Corpuscular Hemoglobin 33.5 pg (27.0-33.0); Mean Corpuscular Volume 93.1 fL (80.0-98.0); Mean Platelet Volume 11.1 fL (9.4-12.4); Monocytes Absolute Auto 0.6 X10*3/uL (0.1-1.2); Monocytes Percent Auto 9.7 % (2-11); Neutrophils Absolute Auto 2.7 x10*3/uL (2.0-8.3); Neutrophils Percent Auto 45.3 % (45-73); Platelet Count 200 X10*3/uL (160-400); Red Blood Count 4.03 X10*6/uL (4.60-5.80); Red Cell Distribution Width 12.7 % (11.0-16.0)
[2024-10-16 13:29] LABS: Estimated Average Glucose 131 mg/dL; Hemoglobin A1C 155.9892 umol/L; Hemoglobin A1c % 6.2 % (<6.0); Total Hemoglobin (HGBA1C) 3500.9782 umol/L
[2024-10-16 13:54] LABS: Alanine Aminotransferase 63 U/L (0-40); Albumin Level 4.4 g/dL (3.5-5.0); Alkaline Phosphatase 138 U/L (39-117); Anion Gap 16 (12-20); Aspartate Amino Transferase 77 U/L (5-37); Bilirubin Total 0.6 mg/dL (0.0-1.0); Blood Urea Nitrogen 23 mg/dL (9-16); Calcium 9.2 mg/dL (8.4-10.2); Carbon Dioxide 18 mmol/L (22-29); Chloride 104 mmol/L (96-108); Cholesterol 161 mg/dL (<200); Estimated Glomerular Filt Rate > 60; Glucose Random 135 mg/dL (60-115); HDL Cholesterol 45 mg/dL (>40); LDL Cholesterol Calculated 68 mg/dL (<100); Potassium 4.9 mmol/L (3.3-5.1); Sodium 133 mmol/L (135-145); Total Protein 7.7 g/dL (6.5-8.0); Triglycerides 241 mg/dL (<150)
[2024-10-16 13:58] LABS: Free T4 (Free Thyroxine) 1.15 ng/dL (0.71-1.85); Thyroid Stimulating Hormone 0.21 uIU/mL (0.32-4.0)
[2024-10-16 14:03] LABS: Folate 4.8 ng/mL (> or = 4.0); Prostate Specific Antigen Scr 0.96 ng/mL (<0.05-4.0); Vitamin B12 408 pg/mL (200-900)
== END 2024-10-16 11:08 | disposition home or self-care (01) ==
LOC: HO.HMGCLDS 11:07
PROVIDERS: PCP Internal Medicine; Visit Provider Internal Medicine
DX: E11.65 Type 2 diabetes mellitus with hyperglycemia (principal); E78.00 Pure hypercholesterolemia, unspecified; Z12.5 Encounter for screening for malignant neoplasm of prostate
CPT/HCPCS: 36415; 80053; 80061; 82607; 82746; 83036; 84153; 84439; 84443; 85025

== ENCOUNTER 2024-10-30 11:22 | Outpatient (AMB) | payer MEDICARE, SELFPAY ==
[2024-10-30 11:26] VITALS: BP 134/70; PULSE 81; O2SAT 97; BMI 32.2
--- NOTE | 2024-10-30 11:26 | A.OFFPC_ITS ---
Vital Signs 3 10/30/24 11:26 Height 5 ft 11 in Weight 231 lb BMI 32.2 BP 134/70 Blood Pressure Location Lt brachial Position Sitting Pulse 81 Pulse Source Pulse Oximeter Pulse Oximetry (%) 97 Oxygen Delivery Method Room Air Intake Visit Reasons: HTN, DM , Cholesterol obesity Allergies wool Allergy (Unknown, Verified 10/30/24 11:26) HIVES ALL OVER Medication List - Last Reconciled 10/30/24 by Tia Oro MD allopurinol 300 mg PO DAILY 90 days amlodipine 10 mg PO DAILY 30 days betamethasone dipropionate 0.05% 1 appl topical DAILY betamethasone valerate 0.1% 1 appl topical BID PRN gemfibrozil 600 mg PO DAILY hydrocortisone 2.5% 1 appl topical BID-TID PRN levothyroxine 125 mcg PO DAILY 90 days lisinopril 40 mg PO DAILY 30 days omeprazole 20 mg PO DAILY rosuvastatin 5 mg PO DAILY sildenafil 100 mg PO DAILY PRN ustekinumab (Stelara) 90 mg subcut [id number] Tobacco use date assessed: 07/23/24 Fall risk assessment: No Falls in past year Last assessed Fall Risk: 10/30/24 Dental Screening Dental Screen Date: 07/23/24 FOR[facility]LY [facility] Medical History (Updated 10/30/24 @ 12:02 by Tia Oro MD) LFT elevation Subclinical hyperthyroidism Upper respiratory infection Impacted cerumen of both ears Vitamin D deficiency Multinodular thyroid Acute sinusitis Enlarged thyroid Annual physical exam Hyperthyroidism Abnormal TSH Type 2 diabetes mellitus with hyperglycemia Erectile dysfunction Psoriasis Gout Obesity (BMI 30-39.9) Hypertriglyceridemia Hypertension Surgical History Hx of thyroidectomy Hx of biopsy Hx of tonsillectomy Family History (Updated 04/02/24 @ 10:20 by Luz Daniel CMA) Mother Bone cancer Brain cancer Sister Breast cancer in situ Other Myocardial infarct Social History (Updated 08/02/23 @ 12:58 by Tia Oro MD) Housing: House Alcohol intake: current Alcohol intake frequency: 3 or more drinks per day Comment: QD 2-3 drinks Patient Tobacco Use Status: Current someday Tobacco user Tobacco use type: Cigar Years Smoked: state 3 a year cigar e-Cigarette/Vaping Use: Never Used Second Hand Smoke Exposure: Yes service: No Current occupational status: employed Cognitive needs: No Hearing needs: No Vision needs: Yes Questionnaire PHQ-9 Over the last 2 weeks, how often have you been bothered by any of the following problems? 1. Little interest or pleasure in doing things: not at all 2. Feeling down, depressed, or hopeless: not at all 3. Trouble falling or staying asleep, or sleeping too much: not at all 4. Feeling tired or having little energy: not at all 5. Poor appetite or overeating: not at all 6. Feeling bad about yourself - or that you are a failure or have let yourself or your family down: not at all 7. Trouble concentrating on things, such as reading the newspaper or watching television: not at all 8. Moving or speaking so slowly that other people could have noticed. Or the opposite - being so fidgety or restless that you have been moving around a lot more than usual: not at all 9. Thoughts that you would be better off or of hurting yourself in some way: not at all Total score: 0 Depression Screening Interpretation: Negative Depression Screening Done: Yes Source: Developed by Drs. Berto Barreto, Janis Campuzano, Paramjit Ramires and colleagues, with an educational cy from [employer]. Thrive Questionnaire Date Thrive assessed: 10/28/24 I am a: Patient What is your living situation today?: I have a steady place to live Within the past 12 months, did the food you bought not last and you didn't have the money to get more?: Never true Within the past 12 months, did you worry whether your food would run out before you got money to buy more?: Never true Do you have trouble paying for medicines?: No Do you have trouble getting transportation to medical appointments?: No Do you have trouble paying your heating and electricity bill?: No Do you have trouble taking care of your child, family member or friend?: No Do you have trouble with day-to-day activities such as bathing, preparing meals, shopping, managing finances, etc.?: No Are you currently unemployed and looking for a job?: No Are you interested in more education?: No Please select the resources that you would like help with: None Currently or been in a relationship where the following occur: No concerns reported THRIVE Score: 0 AUDIT C Alcohol Use Questionnaire (AUDIT-C) 1. How often do you have a drink containing alcohol?: 4 or more times a week 2. How many drinks containing alcohol do you have on a typical day when you are drinking?: 3 or 4 3. How often do you have six or more drinks on one occasion?: Monthly Total Score: 7 VENAKTESH-7 AMB Questionnaire VENKATESH-7 Date VENKATESH - 7 assessed: 07/23/24 Feeling nervous, anxious, or on edge: 0 = Not at all Not being able to stop or control worryin = Not at all Worrying too much about different things: 0 = Not at all Trouble relaxin = Not at all Being so restless that it is hard to sit still: 0 = Not at all Becoming easily annoyed or irritable: 0 = Not at all Feeling afraid as if something awful might happen: 0 = Not at all Total VENKATESH-7 score (0-4 normal; 5-9 mild; 10-14 moderate; 15-21 severe): 0 Source: Developed by Drs. Berto Barreto, Janis Campuzano, Paramjit Ramires and colleagues, with an educational cy from [employer]. Physical exam (Primary Care) Vital Signs: Last Vital Signs Pulse 81 10/30/24 11:26 BP 134/70 10/30/24 11:26 Pulse Ox 97 10/30/24 11:26 Oxygen Delivery Method Room Air 10/30/24 11:26 BMI result Body Mass Index 32.2 Tobacco/Smoking Status: Tobacco use Status Tobacco use date assessed 07/23/24 10/30/24 11:27 Patient Tobacco Use Status Current someday Tobacco 10/30/24 11:27 Tobacco use type Cigar 10/30/24 11:27 e-Cigarette/Vaping Use Never Used 10/30/24 11:27 PHQ-9: PHQ-9 Score PHQ-9: Total score 0 10/30/24 11:40 Depression Screening Interpretation: Negative Thrive Assessment: Date of Thrive Assessment Date Thrive assessed 10/28/24 10/30/24 11:27 Currently or been in a relationship where the following occur: No concerns reported Const General: alert; No acute distress Eyes Conjunctivae: conjunctivae normal Resp Auscultation: clear to auscultation bilaterally Cardio Rate: regular rate Rhythm: regular rhythm GI Other: Guaiac positive stools Inspection: Yes normal to inspection Back/Spine/Pelvis Back/spine/pelvis image: 2 1. Tender on the paralumbar area Extrem General: Yes normal to inspection and No edema Coding Level of Care Code Est Pt Level 4 (83208) Complex EM visit Add On G2211 Diagnoses Hepatic steatosis K76.0 Postsurgical hypothyroidism E89.0 Hypercholesterolemia E78.00 Type 2 diabetes mellitus with hyperglycemia, without long-term current use of insulin E11.65 Diabetes mellitus [facility] insulin use: without terminal operations manager use Obesity (BMI 30-39.9) E66.9 Essential hypertension I10 Hypertension type: essential hypertension Guaiac + stool R19.5 Anemia D64.9 Low back pain M54.50 Assessment & Plan Assessment & Plan (1) Hepatic steatosis: Comment: July 2023 Code(s): K76.0 - Fatty (change of) liver, not elsewhere classified Category: Medical Plan: Low-fat diet and exercise (2) Postsurgical hypothyroidism: Code(s): E89.0 - Postprocedural hypothyroidism Category: Medical Plan: Noted TSH to be low option of lowering the dose of thyroid or retesting in 3 months of TSH (3) Hypercholesterolemia: Code(s): E78.00 - Pure hypercholesterolemia, unspecified Category: Medical Plan: Avoid fried foods, chicken skin, eggs, butter margarine, pastries and meat. Be it pork or beef they have a lot of cholesterol LDL goal of less than 100 and triglyceride of less than 150 rosuvastatin 5 mg once a day and on gemfibrozil 600 mg once a day (4) Type 2 diabetes mellitus with hyperglycemia: Comment: Dr. Christianson Code(s): E11.65 - Type 2 diabetes mellitus with hyperglycemia Category: Medical Qualifiers: Diabetes mellitus [facility] insulin use: without [facility] use Q ualified Code(s): E11.65 - Type 2 diabetes mellitus with hyperglycemia Plan: Decrease the amount of carbohydrate intake, pasta, bread, rice and potatoes are all sugar and that is aside from all the sweet stuff, remember that fruits are good but they are Sweet also. Hemoglobin A1c goal of less than 7.0 diet controlled (5) Obesity (BMI 30-39.9): Code(s): E66.9 - Obesity, unspecified Category: Medical Plan: Diet and exercise (6) Hypertension: Code(s): I10 - Essential (primary) hypertension Category: Medical Qualifiers: Hypertension type: essential hypertension Qualified Code(s): I10 - Essential (primary) hypertension Plan: Continue with blood pressure medication. Decrease salt intake and exercise on amlodipine 10 mg once a day lisinopril 40 mg once a day (7) Guaiac + stool: Code(s): R19.5 - Other fecal abnormalities Category: Medical (8) Anemia: Code(s): D64.9 - Anemia, unspecified Category: Medical (9) Low back pain: Code(s): M54.50 - Low back pain, unspecified Category: Medical Plan History of Present Illness The patient is a 69-year-old male presenting for follow-up of chronic conditions and lab abnormalities. He has a history of essential hypertension managed with amlodipine and lisinopril, hypercholesterolemia treated with rosuvastatin and gemfibrozil, and diabetes mellitus type 2 with an HbA1c of 6.2 maintained by diet. Despite efforts to manage hyperlipidemia, his triglycerides are still elevated at 241 mg/dL. Obesity and hepatic steatosis persist despite a recent seven-pound weight loss. He reports occasional blood in stool associated with spicy food but denies significant bleeding episodes. Anemia with hemoglobin of 13.5 g/dL and hyponatremia have been noted. Liver function tests are elevated, likely secondary to known steatosis. His back pain is associated with recent physical activity, relieved by rest and light stretching. A low TSH suggests a need for potential thyroid medication adjustment. Health Maintenance - LDL goal of less than 100 mg/dL and triglycerides less than 150 mg/dL discussed - Emphasis on low-fat diet and regular exercise - Discussed re-testing TSH levels in three months - Discussed follow-up blood work for anemia and hyponatremia - Referral to gastroenterology for suspected GI bleed - Scheduled for a colonoscopy due to anemia and positive stool occult blood test Social History - Engages in regular physical activity including walking - Dietary modification includes decreased ice cream intake - Reports heavy alcohol use which may contribute to health issues - Low salt diet, avoids eggs - History of back pain attributed to past physical activities such as shoveling and car repairs Review of Systems - Cardiovascular: Denies chest pain - Gastrointestinal: Reports occasional blood tinge after spicy meals; denies significant abdominal pain or heartburn - Musculoskeletal: Reports back pain; notes no fall or trauma - Endocrine: Denies symptoms suggestive of hypothyroidism - General: Notes weight loss of seven pounds Physical Exam - Musculoskeletal- Palpation indicates muscle tenderness in the back Results - Labs: Anemia (Hb 13.5 g/dL), hyponatremia, elevated triglycerides (241 mg/dL), decreased TSH - Tests and Diagnostics: Positive stool occult blood test Plan The patient will continue current antihypertensive and lipid-lowering therapy. Triglyceride levels require ongoing evaluation along with dietary modifications. Diabetes control appears stable. Anemia and hyponatremia will undergo reevaluation, focusing on iron studies and additional labs. Given evidence of GI bleeding, a gastroenterology consult is necessary. Monitoring will include a reassessment of thyroid function and follow-up for all labs in upcoming months. The management of musculoskeletal pain involves physical exercise and an optional muscle relaxant. Patient was informed and verbally consented to the use of an ambient scribe for clinic note documentation during this visit. Discussion Notes I discussed the current diagnoses and management plans with the patient, emphasizing the importance of dietary changes and exercise for hyperlipidemia and diabetes management. I explained that further evaluation is necessary for the anemia and potential GI bleeding, including a referral to gastroenterology. The patient was informed about the implications of a low TSH, with plans to re- check levels in a few months. I highlighted lifestyle modifications and advised on the judicious use of muscle relaxants due to potential sedative effects. A follow-up plan was outlined, with specific attention to prevention and monitoring of chronic conditions. The conversation emphasized ongoing health maintenance through weight management and reduced alcohol intake. Patient Instructions - Continue with current medications: amlodipine, lisinopril, rosuvastatin, gemfibrozil - Follow a low-fat diet and engage in regular physical activity - Limit alcohol consumption - Monitor for signs of gastrointestinal bleeding - Use heating pads for back pain relief and perform daily stretching exercises - Take prescribed muscle relaxant if needed, avoiding activities requiring heavy concentration - Complete follow-up lab work as scheduled - Keep the gastroenterology appointment for further GI evaluation - Schedule thyroid function test in three months Orders: Orders 2 Complete Blood Count Auto Diff 1 Month K76.0 - Fatty (change of) liver, not elsewhere classified Vitamin B12 and Folate 3 Months K76.0 - Fatty (change of) liver, not elsewhere classified Free T4 (Free Thyroxine) 3 Months K76.0 - Fatty (change of) liver, not elsewhere classified Uric Acid 3 Months K76.0 - Fatty (change of) liver, not elsewhere classified Comprehensive Met. Panel 1 Month K76.0 - Fatty (change of) liver, not elsewhere classified Ferritin 1 Month K76.0 - Fatty (change of) liver, not elsewhere classified IRON PROFILE 1 Month K76.0 - Fatty (change of) liver, not elsewhere classified Reticulocyte Count Today K76.0 - Fatty (change of) liver, not elsewhere classified Thyroid Stimulating Hormone 3 Months K76.0 - Fatty (change of) liver, not elsewhere classified Lipid Panel 3 Months E78.00 - Pure hypercholesterolemia, unspecified, K76.0 - Fatty (change of) liver, not elsewhere classified Referrals 2 General Surgery Referral D64.9 - Anemia, unspecified, R19.5 - Other fecal abnormalities Medications: New 2 omeprazole 20 mg PO DAILY 30 caps 0RF D64.9 - Anemia, unspecified, R19.5 - Other fecal abnormalities cyclobenzaprine 5 mg PO TID PRN 30 tabs 0RF muscle spasm M54.50 - Low back pain, unspecified
== END 2024-10-30 12:10 | disposition home or self-care (01) ==
LOC: HO.HMCH 11:22
PROVIDERS: PCP Internal Medicine; Visit Provider Internal Medicine
DX: E11.65 Type 2 diabetes mellitus with hyperglycemia (principal); K76.0 Fatty (change of) liver, not elsewhere classified; E66.9 Obesity, unspecified; Z68.32 Body mass index [BMI] 32.0-32.9, adult; E89.0 Postprocedural hypothyroidism; E78.00 Pure hypercholesterolemia, unspecified; I10 Essential (primary) hypertension; R19.5 Other fecal abnormalities; D64.9 Anemia, unspecified; M54.50 Low back pain, unspecified

== ENCOUNTER → 2024-10-30 11:22 | Outpatient (BNVA) | payer MEDICARE, SELFPAY | PROVIDERS: PCP Internal Medicine; Visit Provider Internal Medicine | DX: K76.0 Fatty (change of) liver, not elsewhere classified (principal); E89.0 Postprocedural hypothyroidism; E78.00 Pure hypercholesterolemia, unspecified; E11.65 Type 2 diabetes mellitus with hyperglycemia; R19.5 Other fecal abnormalities; D64.9 Anemia, unspecified; I10 Essential (primary) hypertension; M54.50 Low back pain, unspecified; E66.9 Obesity, unspecified; Z68.32 Body mass index [BMI] 32.0-32.9, adult; Z71.3 Dietary counseling and surveillance | CPT/HCPCS: 99212 ==

== ENCOUNTER 2024-12-01 09:50 | Outpatient (AMB) | payer MEDICARE, SELFPAY ==
--- NOTE | 2024-12-01 10:01 | A.OFFVIS_ITS ---
Vital Signs 12/01/24 10:11 Height 5 ft 11 in Weight 232 lb BMI 32.4 BP 132/74 Blood Pressure Location Rt brachial Position Sitting Pulse 63 Intake Visit Reasons: Anemia, anal bleeding Intake Note: Patient referred by pcp Dr. Oro for anemia/ anal bleeding. Guaiac + stool R19.5 Patient c/o: diagnosed with acid reflux. Taking Omeprazole. Due to have labs checked tomorrow. Hx of 2 previous colonoscopies. No hx of polyps. 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 He was seen by his primary care physician and was noted to have relative anemia with a hemoglobin 13.5 from a baseline of 16. He has a positive for Hemoccult with a rectal exam. He was therefore referred to me for EGD and colonoscopy The patient denies any GI complaints. He admits to drinking alcohol every day since he was 20 years old. He also admits that he was started on Prilosec Dr. Oro last month and the day after that, he had severe diarrhea causing skin breakdown around his anus with some blood. He says he normally does not see any blood per rectum. Review of his records show that his last colonoscopy was with me in 2019 and he had diverticulosis and hemorrhoids. [facility] Medical History LFT elevation Subclinical hyperthyroidism Upper respiratory infection Impacted cerumen of both ears Vitamin D deficiency Multinodular thyroid Acute sinusitis Enlarged thyroid Annual physical exam Hyperthyroidism Abnormal TSH Type 2 diabetes mellitus with hyperglycemia Erectile dysfunction Psoriasis Gout Obesity (BMI 30-39.9) Hypertriglyceridemia Hypertension Surgical History Hx of thyroidectomy Hx of biopsy Hx of tonsillectomy Family History Mother Bone cancer Brain cancer Sister Breast cancer in situ Other Myocardial infarct Social History Housing: House Alcohol intake: current Alcohol intake frequency: 3 or more drinks per day Comment: QD 2-3 drinks Patient Tobacco Use Status: Current someday Tobacco user Tobacco use type: Cigar Years Smoked: state 3 a year cigar e-Cigarette/Vaping Use: Never Used Second Hand Smoke Exposure: Yes service: No Current occupational status: employed Cognitive needs: No Hearing needs: No Vision needs: Yes Review of Systems Const Denies chills and Denies fever(s) Card Denies chest pain, Denies dyspnea and Denies dyspnea on exertion Resp Denies cough, Denies dyspnea and Denies dyspnea on exertion GI Denies hematochezia and Denies change in bowel habits Denies hematuria and Denies difficulty urinating Musc Denies back pain and Denies limited range of motion Neuro Denies focal weakness and Denies convulsions Psych Denies depression and Denies mood swings Physical Exam Vital Signs: Last Vital Signs Pulse 63 12/01/24 10:11 BP 132/74 12/01/24 10:11 BMI result Body Mass Index 32.4 Const General: comfortable and no acute distress Orientation/consciousness: patient oriented x3 Neck Neck: Yes no lymphadenopathy Resp Auscultation: clear to auscultation bilaterally Cardio Rhythm: regular rhythm GI Palpation (GI): Soft to palpation, nontender and no guarding Neuro General: patient oriented x3 Assessment & Plan Assessment & Plan (1) Anemia: Code(s): D64.9 - Anemia, unspecified Category: Medical Plan: He was referred to me for GI workup because of relative anemia. He is a known drinker. He also tested positive on a Hemoccult test in the primary care physician's office I had a long discussion with him about the technique of EGD and colonoscopy. I discussed the risks of both procedures including but not limited to bleeding, infections, bowel injury//perforation, inherent risks of anesthesia, as well as the benefits and alternatives. He understands and wants to proceed I also counseled him on the benefits of cessation of his daily alcohol use as well as weight loss. Medications: New sodium,potassium,mag sulfates 17.5-3.13-1.6 gram (Suprep Bowel Prep Kit) DILUTE; drink full amount early evening before AND next morning at least 2 hr before procedure; follow w 960 mL water PO 354 mL 0RF Coding Level of Care Code New Pt Level 3 (13863) Diagnoses Anemia D64.9
[2024-12-01 10:11] VITALS: BP 132/74; PULSE 63; BMI 32.4
== END 2024-12-01 10:30 | disposition home or self-care (01) ==
LOC: HO.HGS 09:50
PROVIDERS: PCP Internal Medicine; Visit Provider Surgery
DX: D64.9 Anemia, unspecified (principal)
CPT/HCPCS: 99203

== ENCOUNTER → 2024-12-01 09:50 | Outpatient (BNVA) | payer MEDICARE, SELFPAY | PROVIDERS: PCP Internal Medicine; Visit Provider Surgery | DX: D64.9 Anemia, unspecified (principal) | CPT/HCPCS: 99202 ==

== ENCOUNTER 2024-12-02 10:53 | Outpatient (REF) | payer MEDICARE, SELFPAY ==
[2024-12-02 12:55] LABS: MANUAL DIFF FLAG NO
[2024-12-02 13:05] LABS: Basophils Absolute Auto 0.1 X10*3/uL (0.0-0.2); Basophils Percent Auto 1.1 % (0-2); Eosinophils Absolute Auto 0.2 X10*3/uL (0.0-0.4); Eosinophils Percent Auto 2.1 % (0-4); Hemoglobin 13.3 g/dl (14.0-18.0); Imm Gran Abs Auto 0.03 X10*3/uL (0.00-0.03); Imm Gran Pct Auto 0.4 % (0.0-0.4); Lymphocytes Absolute Auto 2.4 X10*3/uL (1.2-4.9); Mean Corpuscular Hemoglobin 33.7 pg (27.0-33.0); Mean Corpuscular Volume 96.2 fL (80.0-98.0); Monocytes Absolute Auto 0.7 X10*3/uL (0.1-1.2); Neutrophils Absolute Auto 4.3 x10*3/uL (2.0-8.3); Neutrophils Percent Auto 56.4 % (45-73); Platelet Count 206 X10*3/uL (160-400); Red Blood Count 3.95 X10*6/uL (4.60-5.80); Red Cell Distribution Width 12.9 % (11.0-16.0); White Blood Count 7.6 X10*3/uL (4.8-10.8)
[2024-12-02 13:31] LABS: Alanine Aminotransferase 49 U/L (0-40); Albumin Level 4.6 g/dL (3.5-5.0); Alkaline Phosphatase 116 U/L (39-117); Anion Gap 14 (12-20); Aspartate Amino Transferase 65 U/L (5-37); Bilirubin Total 0.8 mg/dL (0.0-1.0); Blood Urea Nitrogen 19 mg/dL (9-16); Calcium 9.6 mg/dL (8.4-10.2); Carbon Dioxide 23 mmol/L (22-29); Chloride 104 mmol/L (96-108); Estimated Glomerular Filt Rate 51; Glucose Random 136 mg/dL (60-115); Iron 134 mcg/dL (45-160); Percent Iron Saturation 40 % (15-50); Potassium 4.7 mmol/L (3.3-5.1); Sodium 136 mmol/L (135-145); Total Iron Binding Capacity 331 mcg/dL (228-428); Total Protein 7.9 g/dL (6.5-8.0); Unsaturated Iron Binding 197 ug/dL
[2024-12-02 13:40] LABS: Ferritin 634 ng/mL (20-250)
== END 2024-12-02 10:54 | disposition home or self-care (01) ==
LOC: HO.HMGCLDS 10:53
PROVIDERS: PCP Internal Medicine; Visit Provider Internal Medicine
DX: K76.0 Fatty (change of) liver, not elsewhere classified (principal)
CPT/HCPCS: 36415; 80053; 82728; 83540; 85025

== ENCOUNTER 2024-12-23 14:42 | Outpatient (AMB) | payer MEDICARE, SELFPAY ==
--- NOTE | 2024-12-23 14:54 | MHC.PC.OV ---
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 Accompanied by: Spouse Allergies wool Allergy (Unknown, Verified 12/23/24 14:55) HIVES ALL OVER Medication List - Last Reconciled 12/23/24 by Tia Oro MD allopurinol 300 mg PO DAILY 90 days amlodipine 10 mg PO DAILY 30 days amoxicillin-pot clavulanate 875-125 mg 1 tab PO BID betamethasone dipropionate 0.05% 1 appl topical DAILY betamethasone valerate 0.1% 1 appl topical BID PRN cyclobenzaprine 5 mg PO TID PRN fluticasone propionate 50 mcg/actuation (Flonase Allergy Relief) 2 sprays intranasal DAILY gemfibrozil 600 mg PO DAILY hydrocortisone 2.5% 1 appl topical BID-TID PRN levothyroxine 125 mcg PO DAILY 90 days lisinopril 40 mg PO DAILY 30 days omeprazole 20 mg PO DAILY rosuvastatin 5 mg PO DAILY sildenafil 100 mg PO DAILY PRN sodium,potassium,mag sulfates 17.5-3.13-1.6 gram (Suprep Bowel Prep Kit) DILUTE; drink full amount early evening before AND next morning at least 2 hr before procedure; follow w 960 mL water PO ustekinumab (Stelara) 90 mg subcut [id number] Tobacco use date assessed: 07/23/24 Dental Screening Dental Screen Date: 07/23/24 HPI Sinus Infection HPI Details R retroorbital pain 2 weeks ago, PFSH Medical History LFT elevation Subclinical hyperthyroidism Upper respiratory infection Impacted cerumen of both ears Vitamin D deficiency Multinodular thyroid Acute sinusitis Enlarged thyroid Annual physical exam Hyperthyroidism Abnormal TSH Type 2 diabetes mellitus with hyperglycemia Erectile dysfunction Psoriasis Gout Obesity (BMI 30-39.9) Hypertriglyceridemia Hypertension Surgical History Hx of thyroidectomy Hx of biopsy Hx of tonsillectomy Family History Mother Bone cancer Brain cancer Sister Breast cancer in situ Other Myocardial infarct Social History Housing: House Alcohol intake: current Alcohol intake frequency: 3 or more drinks per day Comment: QD 2-3 drinks Patient Tobacco Use Status: Current someday Tobacco user Tobacco use type: Cigar Years Smoked: state 3 a year cigar e-Cigarette/Vaping Use: Never Used Second Hand Smoke Exposure: Yes service: No Current occupational status: employed Cognitive needs: No Hearing needs: No Vision needs: Yes Questionnaire PHQ-9 Over the last 2 weeks, how often have you been bothered by any of the following problems? 1. Little interest or pleasure in doing things: not at all 2. Feeling down, depressed, or hopeless: not at all 3. Trouble falling or staying asleep, or sleeping too much: not at all 4. Feeling tired or having little energy: not at all 5. Poor appetite or overeating: not at all 6. Feeling bad about yourself - or that you are a failure or have let yourself or your family down: not at all 7. Trouble concentrating on things, such as reading the newspaper or watching television: not at all 8. Moving or speaking so slowly that other people could have noticed. Or the opposite - being so fidgety or restless that you have been moving around a lot more than usual: not at all 9. Thoughts that you would be better off or of hurting yourself in some way: not at all Total score: 0 Depression Screening Interpretation: Negative Depression Screening Done: Yes Source: Developed by Drs. Berto Barreto, Janis Campuzano, Paramjit Ramires and colleagues, with an educational cy from [employer]. Thrive Questionnaire Date Thrive assessed: 12/23/24 I am a: Patient What is your living situation today?: I have a steady place to live Within the past 12 months, did the food you bought not last and you didn't have the money to get more?: Never true Within the past 12 months, did you worry whether your food would run out before you got money to buy more?: Never true Do you have trouble paying for medicines?: No Do you have trouble getting transportation to medical appointments?: No Do you have trouble paying your heating and electricity bill?: No Do you have trouble taking care of your child, family member or friend?: No Do you have trouble with day-to-day activities such as bathing, preparing meals, shopping, managing finances, etc.?: No Are you currently unemployed and looking for a job?: No Are you interested in more education?: No Please select the resources that you would like help with: None Currently or been in a relationship where the following occur: No concerns reported THRIVE Score: 0 VENKATESH-7 AMB Questionnaire VENKATESH-7 Date VENKATESH - 7 assessed: 12/23/24 Feeling nervous, anxious, or on edge: 0 = Not at all Not being able to stop or control worryin = Not at all Worrying too much about different things: 0 = Not at all Trouble relaxin = Not at all Being so restless that it is hard to sit still: 0 = Not at all Becoming easily annoyed or irritable: 0 = Not at all Feeling afraid as if something awful might happen: 0 = Not at all Total VENKATESH-7 score (0-4 normal; 5-9 mild; 10-14 moderate; 15-21 severe): 0 Source: Developed by Drs. Berto Barreto, Janis Campuzano, Paramjit Ramires and colleagues, with an educational cy from [employer]. Physical exam (Primary Care) Vital Signs: Last Vital Signs Pulse 76 12/23/24 14:56 BP 128/60 12/23/24 14:56 Pulse Ox 97 12/23/24 14:56 Oxygen Delivery Method Room Air 12/23/24 14:56 BMI result Body Mass Index 31.9 Tobacco/Smoking Status: Tobacco use Status Tobacco use date assessed 07/23/24 12/23/24 14:57 Patient Tobacco Use Status Current someday Tobacco 12/23/24 14:57 Tobacco use type Cigar 12/23/24 14:57 e-Cigarette/Vaping Use Never Used 12/23/24 14:57 PHQ-9: PHQ-9 Score PHQ-9: Total score 0 12/23/24 15:16 Depression Screening Interpretation: Negative Thrive Assessment: Date of Thrive Assessment Date Thrive assessed 12/23/24 12/23/24 14:57 Currently or been in a relationship where the following occur: No concerns reported Const General: alert; No acute distress Eyes Conjunctivae: conjunctivae normal Resp Auscultation: clear to auscultation bilaterally Cardio Rate: regular rate Rhythm: regular rhythm GI Inspection: Yes normal to inspection Extrem General: Yes normal to inspection and No edema Coding Level of Care Code Est Pt Level 4 (05855) Complex EM visit Add On G2211 Diagnoses Essential hypertension I10 Hypertension type: essential hypertension Hypercholesterolemia E78.00 Type 2 diabetes mellitus with hyperglycemia, without long-term current use of insulin E11.65 Diabetes mellitus equipment operator intermodal yard insulin use: without half-way use Postsurgical hypothyroidism E89.0 Obesity (BMI 30-39.9) E66.9 Hepatic steatosis K76.0 Sinusitis J32.9 Assessment & Plan Assessment & Plan (1) Hypertension: Code(s): I10 - Essential (primary) hypertension Category: Medical Qualifiers: Hypertension type: essential hypertension Qualified Code(s): I10 - Essential (primary) hypertension Plan: Continue with blood pressure medication. Decrease salt intake and exercise on lisinopril 40 mg once a day amlodipine 10 mg once a day (2) Hypercholesterolemia: Code(s): E78.00 - Pure hypercholesterolemia, unspecified Category: Medical Plan: Avoid fried foods, chicken skin, eggs, butter margarine, pastries and meat. Be it pork or beef they have a lot of cholesterol LDL goal of less than 100 and triglyceride of less than 150 on rosuvastatin 5 mg once a day (3) Type 2 diabetes mellitus with hyperglycemia: Comment: Dr. Christianson Code(s): E11.65 - Type 2 diabetes mellitus with hyperglycemia Category: Medical Qualifiers: Diabetes mellitus half-way insulin use: without half-way use Qualified Code(s): E11.65 - Type 2 diabetes mellitus with hyperglycemia Plan: Decrease the amount of carbohydrate intake, pasta, bread, rice and potatoes are all sugar and that is aside from all the sweet stuff, remember that fruits are good but they are Sweet also. Hemoglobin A1c goal of less than 7.0 diet controlled (4) Postsurgical hypothyroidism: Code(s): E89.0 - Postprocedural hypothyroidism Category: Medical Plan: Continue with thyroid medication (5) Obesity (BMI 30-39.9): Code(s): E66.9 - Obesity, unspecified Category: Medical Plan: Diet and exercise (6) Hepatic steatosis: Comment: July 2023 Code(s): K76.0 - Fatty (change of) liver, not elsewhere classified Category: Medical Plan: Low-fat diet and exercise (7) Sinusitis: Code(s): J32.9 - Chronic sinusitis, unspecified Category: Medical Plan History of Present Illness The patient is a 69-year-old male presenting with sinusitis and follow-up for chronic conditions. The patient reports a history of sinusitis with symptoms worsening over the past two weeks, including throbbing pain around the eyes and nasal congestion. He has been using [id number] medications without relief and reports difficulty sleeping due to the symptoms. The patient denies any significant pain in the throat or other areas, except for the sinus region. The patient has a history of obesity, hypertension, type 2 diabetes mellitus, hypercholesterolemia, psoriasis, and hepatic steatosis. His last hemoglobin A1c was 6.2% in October 2024, and he is currently managing diabetes with diet control. The patient is on lisinopril and amlodipine for hypertension and rosuvastatin for hypercholesterolemia, with a goal LDL of less than 100 mg/dL and triglycerides less than 150 mg/dL. The patient had blood work done in November 2023, which showed anemia with hemoglobin at 13.3 g/dL and hematocrit at 38%, elevated liver function tests, and a creatinine level of 1.4 mg/dL, indicating decreased renal function. His cholesterol was last tested in October with an LDL of 68 mg/dL and triglycerides of 241 mg/dL. The patient is scheduled for a colonoscopy in January as part of his preventative care. Health Maintenance - Colonoscopy scheduled for January - LDL goal of less than 100 mg/dL and triglycerides less than 150 mg/dL - Hemoglobin A1c goal of less than 7.0% Social History - Exercise: Engages in light chores for about 20-30 minutes outdoors, returns indoors due to allergies Review of Systems - Head and Neck: Reports throbbing pain around the eyes, nasal congestion, and sinus pressure. Denies throat pain. - Respiratory: Reports nasal drainage and sneezing. Denies cough. - Gastrointestinal: Denies diarrhea. Physical Exam - Head and Neck: No pain on palpation above the eyes, full of ear wax noted - Oral Examination: No pain noted, tongue examination performed Results - Labs: Hemoglobin 13.3 g/dL, Hematocrit 38%, Creatinine 1.4 mg/dL, LDL 68 mg/dL, Triglycerides 241 mg/dL - Tests: Scheduled colonoscopy for January Plan The patient will be treated for sinusitis with antibiotics for seven days, and a nasal spray will be prescribed to alleviate symptoms. If symptoms do not improve within one to two days, a sinus x-ray will be considered to further evaluate the condition. The patient is advised to avoid overuse of Tylenol to prevent rebound congestion and to consider using Claritin or Rae for allergy management, as these do not cause drowsiness. For hypertension, the patient will continue on lisinopril and amlodipine, and for hypercholesterolemia, rosuvastatin will be continued with a goal to maintain LDL below 100 mg/dL and triglycerides below 150 mg/dL. Diabetes management will focus on maintaining a hemoglobin A1c below 7.0% through diet control. The patient is scheduled for a colonoscopy in January as part of routine preventative care. Patient was informed and verbally consented to the use of an ambient scribe for clinic note documentation during this visit. Discussion Notes I discussed with the patient the treatment plan for sinusitis, including the use of antibiotics and nasal spray. We talked about the possibility of a sinus x-ray if symptoms do not improve. I advised the patient on the risks of overusing Tylenol and recommended Claritin or Rae for allergies. We reviewed the management of hypertension and hypercholesterolemia, emphasizing medication adherence and lifestyle modifications. The importance of maintaining a hemoglobin A1c below 7.0% was highlighted, and the upcoming colonoscopy was confirmed as part of preventative care. Patient Instructions - Take prescribed antibiotics for sinusitis twice daily for seven days. - Use nasal spray as directed to help clear congestion. - Avoid overusing Tylenol to prevent rebound congestion. - Consider using Claritin or Rae for allergy relief. - Continue taking lisinopril and amlodipine for blood pressure management. - Continue taking rosuvastatin to manage cholesterol levels. - Maintain a diet to control diabetes and aim for a hemoglobin A1c below 7.0%. - Attend scheduled colonoscopy in January for preventative care. Orders: Orders XR sinus min 3V Today J32.9 - Chronic sinusitis, unspecified Medications: New amoxicillin-pot clavulanate 875-125 mg 1 tab PO BID 14 tabs 0RF J32.9 - Chronic sinusitis, unspecified fluticasone propionate 50 mcg/actuation (Flonase Allergy Relief) administer into each nostril 2 sprays intranasal DAILY 16 grams 1RF J32.9 - Chronic sinusitis, unspecified
[2024-12-23 14:56] VITALS: BP 128/60; PULSE 76; O2SAT 97; BMI 31.9
== END 2024-12-23 15:29 | disposition home or self-care (01) ==
LOC: HO.HMCH 14:43
PROVIDERS: PCP Internal Medicine; Visit Provider Internal Medicine
DX: E11.65 Type 2 diabetes mellitus with hyperglycemia (principal); E66.9 Obesity, unspecified; Z68.31 Body mass index [BMI] 31.0-31.9, adult; I10 Essential (primary) hypertension; E78.00 Pure hypercholesterolemia, unspecified; E89.0 Postprocedural hypothyroidism; K76.0 Fatty (change of) liver, not elsewhere classified; J32.9 Chronic sinusitis, unspecified

== ENCOUNTER → 2024-12-23 14:42 | Outpatient (BNVA) | payer MEDICARE, SELFPAY | PROVIDERS: PCP Internal Medicine; Visit Provider Internal Medicine | DX: I10 Essential (primary) hypertension (principal); E78.00 Pure hypercholesterolemia, unspecified; E11.65 Type 2 diabetes mellitus with hyperglycemia; E89.0 Postprocedural hypothyroidism; E66.9 Obesity, unspecified; Z68.31 Body mass index [BMI] 31.0-31.9, adult; K76.0 Fatty (change of) liver, not elsewhere classified; J32.9 Chronic sinusitis, unspecified; Z71.3 Dietary counseling and surveillance | CPT/HCPCS: 99212 ==

== ENCOUNTER 2025-01-02 12:20 | Outpatient (REF) | payer MEDICARE, SELFPAY ==
--- OUTSIDE RECORDS SUMMARY | 2025-01-02 12:22 | XMS_ITS ---
Author Name [facility] Organization Unknown Care Team Organization Name Specialty Phone Email Start Date End Da chavez [facility] BHAVNA METCALF Primary Care 04/18/2022 01/28/20 24
[2025-01-02 16:32] LABS: Free T4 (Free Thyroxine) 1.12 ng/dL (0.71-1.85); Thyroid Stimulating Hormone 0.99 uIU/mL (0.32-4.0)
== END 2025-01-02 12:21 | disposition home or self-care (01) ==
LOC: HO.HMGCLDS 12:20
PROVIDERS: PCP Internal Medicine; Visit Provider Internal Medicine
DX: E89.0 Postprocedural hypothyroidism (principal)
CPT/HCPCS: 36415; 84439; 84443

== ENCOUNTER 2025-01-20 07:21 | Day surgery (SDC) | payer MEDICARE, SELFPAY ==
[2025-01-16 09:13] VITALS: BMI 32.4
--- NOTE | 2025-01-19 08:38 | HO.ANESPROP2 ---
Documented by User: Frances Zaragoza NP 01/19/25 08:39 HPI - Anesthesia Eval Consult details Narrative: 69yo M for Colonoscopy with possible Polypectomy with esophagogastroduod- enoscopy [facility] Active Problems Active Problems: All Active Problems Sinusitis (Acute) Low back pain (Acute) Anemia (Acute) Guaiac + stool (Acute) Hepatic steatosis (Acute) Medicare annual wellness visit, subsequent (Acute) Erectile dysfunction (Acute) Postsurgical hypothyroidism (Acute) Erectile dysfunction (Acute) Annual physical exam (Acute) Psoriasis (Acute) Vitamin D deficiency (Acute) Multinodular thyroid (Acute) Hypercholesterolemia (Acute) Psoriasis (Acute) COVID-19 virus infection (Acute) Gout (Acute) Type 2 diabetes mellitus with hyperglycemia (Acute) Obesity (BMI 30-39.9) (Acute) Hypertriglyceridemia (Acute) Hypertension (Acute) Past Medical History Medical History (Updated 01/20/25 @ 07:50 by Reena Santiago, RN) LFT elevation Subclinical hyperthyroidism Upper respiratory infection Impacted cerumen of both ears Vitamin D deficiency Multinodular thyroid Acute sinusitis Enlarged thyroid Annual physical exam Hyperthyroidism Abnormal TSH Type 2 diabetes mellitus with hyperglycemia Erectile dysfunction Psoriasis Gout Obesity (BMI 30-39.9) Hypertriglyceridemia Hypertension Family History Family History Mother Bone cancer Brain cancer Sister Breast cancer in situ Other Myocardial infarct Surgical History Surgical History (Updated 01/20/25 @ 07:42 by Reena Santiago, CSOT) H/O colonoscopy Hx of thyroidectomy Hx of biopsy Hx of tonsillectomy Social History Social History Housing: House Alcohol intake: current Alcohol intake frequency: 3 or more drinks per day Comment: QD 2-3 drinks Patient Tobacco Use Status: Never used Tobacco Tobacco use type: Cigar Years Smoked: state 3 a year cigar e-Cigarette/Vaping Use: Never Used Second Hand Smoke Exposure: Yes Use of substances other than those prescribed or required for medical reasons: No Are you DNR?: No Advance Directives: No Advance Directives Information Provided: Yes service: No Current occupational status: employed Cognitive needs: No Hearing needs: No Vision needs: Yes Meds Allergies Allergy/AdvReac Type Severity Reaction Status Date / Time wool Allergy Unknown HIVES ALL Verified 01/20/25 07:49 OVER Home Medications ?Medication ?Instructions ?Recorded ?Confirmed ?Last Taken ?Type betamethasone dipropionate 0.05 % 1 appl topical DAILY 11/11/20 01/20/25 Unknown History topical ointment betamethasone valerate 0.1 % 1 appl topical BID PRN Skin 02/25/21 01/20/25 Unknown History topical ointment Irritation hydrocortisone 2.5 % topical 1 appl topical BID-TID PRN Skin 02/25/21 01/20/25 Unknown History ointment Irritation ustekinumab 90 mg/mL subcutaneous 90 mg subcut [id number] 07/23/24 01/20/25 Unknown History syringe (Stelara) Exam Height,Weight and Vital Signs: Height 5 ft 11 in Weight 105.233 kg Assessment and Plan Assessment Anesthesia Assessment: Chart Reviewed Documented by User: Bret Montalvo MD 01/20/25 08:10 PMFSH Past Medical History Medical History (Updated 01/20/25 @ 07:50 by Reena Santiago RN) LFT elevation Subclinical hyperthyroidism Upper respiratory infection Impacted cerumen of both ears Vitamin D deficiency Multinodular thyroid Acute sinusitis Enlarged thyroid Annual physical exam Hyperthyroidism Abnormal TSH Type 2 diabetes mellitus with hyperglycemia Erectile dysfunction Psoriasis Gout Obesity (BMI 30-39.9) Hypertriglyceridemia Hypertension Family History Family History Mother Bone cancer Brain cancer Sister Breast cancer in situ Other Myocardial infarct Family history of problems with anesthesia: No Surgical History Surgical History (Updated 01/20/25 @ 07:42 by Reena Santiago RN) H/O colonoscopy Hx of thyroidectomy Hx of biopsy Hx of tonsillectomy History of Problems with Anesthesia: No Social History Social History Housing: House Alcohol intake: current Alcohol intake frequency: 3 or more drinks per day Comment: QD 2-3 drinks Patient Tobacco Use Status: Never used Tobacco Tobacco use type: Cigar Years Smoked: state 3 a year cigar e-Cigarette/Vaping Use: Never Used Second Hand Smoke Exposure: Yes Use of substances other than those prescribed or required for medical reasons: No Are you DNR?: No Advance Directives: No Advance Directives Information Provided: Yes service: No Current occupational status: employed Cognitive needs: No Hearing needs: No Vision needs: Yes Meds Allergies Allergy/AdvReac Type Severity Reaction Status Date / Time wool Allergy Unknown HIVES ALL Verified 01/20/25 07:49 OVER Home Medications ?Medication ?Instructions ?Recorded ?Confirmed ?Last Taken ?Type betamethasone dipropionate 0.05 % 1 appl topical DAILY 11/11/20 01/20/25 Unknown History topical ointment betamethasone valerate 0.1 % 1 appl topical BID PRN Skin 02/25/21 01/20/25 Unknown History topical ointment Irritation hydrocortisone 2.5 % topical 1 appl topical BID-TID PRN Skin 02/25/21 01/20/25 Unknown History ointment Irritation ustekinumab 90 mg/mL subcutaneous 90 mg subcut [id number] 07/23/24 01/20/25 Unknown History syringe (Stelara) Exam Airway Mallampati Class: III TM Dist: >3cm Neck ROM: Full Denture: Lower Assessment and Plan Assessment Anesthesia Assessment: Anesthesia Plan Discussed Final Anesthetic Review Family History of Problems with Anesthesia: No History of Problems with Anesthesia: No NPO: Yes ASA Class: III Final Preanesthetic Review: No Changes in Pt Med Stat, Meds/Allgs Chart Reviewed, Consent Obtained/Reviewed, Anes Risks/Benef Reviewed and DNR Form (If Appl.) Patient Risk: Intermediate Procedure Risk: Low Anesthetic Plan Anesthetic Plan: TIVA Disposition: Standard PACU
[2025-01-20 07:37] VITALS: BMI 31.6
[2025-01-20 07:50] VITALS: BP 131/71; PULSE 76; RESP 15; TEMP 36.6; O2SAT 94
[2025-01-20] MEDS: Lactated Ringers 1,000 ML 100 ML IVCONT (07:58)
--- NOTE | 2025-01-20 08:51 | MHC.SHP ---
Pre-Procedural Eval Section A - 24 Hr Update-Section A only Date of Service: 01/20/25 Section B - Complete if H&P > 30 days Chief Complaint: anemia Details of Present Illness: For EGD and colonoscopy because of chronic anemia Relevant Family History (Specify if Yes): No Present Medications: see Short Stay Collaborative assessment Medical History: Significant History (Anemia, obesity, diabetes, hypertension, gout, hyperlipidemia) Allergies: Allergies Allergy/AdvReac Type Severity Reaction Status Date / Time wool Allergy Unknown HIVES ALL Verified 01/20/25 07:49 OVER Review of Systems Sugical H&P ROS: Negative: Constitution, Cardiovascular, Respiratory and Gastrointestinal Exam Surgical H&P Exam: Normal: Heart, Normal: Lungs and Normal: Abdomen Plan Diagnosis/Plan: Unchanged I have reviewed the history and physical and performed a pertinent physical examination on my patient. No changes have occurred unless specified. Time Spent With Patient Time: Total time managing care of this patient today ____ minutes.
--- NOTE | 2025-01-20 09:43 | P.OP_ITS ---
Operative Note Operative Note Date of Service: 01/20/25 Narrative: Preop diagnosis:: Anemia, with heme-positive stools Postop diagnosis: 1. Normal EGD findings 2. Occasional diverticuli in the sigmoid otherwise normal colonoscopy findings Procedure: EGD, Colonoscopy Surgeon: Godfrey Coker MD This is a 69-year-old male referred to me because of relative anemia and heme- positive stools. He understood the technique of ED and colonoscopy. He was aware of the risks, benefits, and alternatives. He was brought to the operating room. He was placed supine under monitored anesthesia care. A bite block was in position. A surgical time-out was done. The scope was gently introduced through the bite block into the oropharynx. The vocal cords were visualized. The esophageal slit was seen posterior to this. The esophageal slit was intubated. The scope was gently advanced through the entire length of the esophagus all the way to the stomach. The pyloric orifice was entered and the scope was advanced of the 2nd part of the duodenum the duod enal mucosa examined carefully. The scope was gently withdrawn with careful examination of the rest of the duodenal mucosa being done with scope withdrawal. The scope was brought back into the stomach. The scope was retroflexed to visualize the cardia and hiatus. There were no lesions in the area. There was no significant hiatal hernia. The entire mucosa of the stomach was examined carefully. There were no ulcers or any lesions. The scope was moved into the esophagus. The GE junction was unremarkable. The entire length of the esophagus was unremarkable. The scope was then withdrawn completely I then proceeded to do the colonoscopy. The patient is placed in a left lateral decubitus position. A digital rectal exam was done. There were no palpable anal lesions. The tip of the Olympus scope was gently introduced through the anal orifice advanced with insufflation all the way to the cecum. The cecum was visualized. The cecum was identified by visualization of the ileocecal valve as well as the appendiceal orifice. The cecal mucosa was unremarkable. The scope was gradually withdrawn with careful examination of the entire colonic mucosa being done with scope withdrawal. The patient had adequate bowel prep so it was unlikely that any lesion may have been missed There was note of occasional diverticuli in the sigmoid. There were no lesions seen. There was no polyp. The rectum was reached under lesions seen. The anal canal was unremarkable. The scope was then withdrawn completely with desufflation The patient tolerated the procedure well. There were no immediate complications. The patient is then transferred to recovery room with stable vital signs.
[2025-01-20 09:45] VITALS: BP 94/61; PULSE 70; RESP 22; TEMP 36.6; O2SAT 97
[2025-01-20 10:00] VITALS: BP 100/53; PULSE 70; RESP 18; O2SAT 97
[2025-01-20 10:15] VITALS: BP 106/66; PULSE 56; RESP 16; TEMP 36.4; O2SAT 97
== END 2025-01-20 10:45 | disposition home or self-care (01) ==
PROVIDERS: PCP Internal Medicine; Visit Provider Surgery
PROC: 0DBE8ZZ Excision of Large Intestine, Via Natural or Artificial Opening Endoscopic (ICD-10-PCS; CPT 43235; principal; 2025-01-20 08:50)
DX: R19.5 Other fecal abnormalities (principal); K57.30 Diverticulosis of large intestine without perforation or abscess without bleeding; D64.9 Anemia, unspecified; K21.9 Gastro-esophageal reflux disease without esophagitis; E11.9 Type 2 diabetes mellitus without complications; I10 Essential (primary) hypertension; E78.00 Pure hypercholesterolemia, unspecified; E03.9 Hypothyroidism, unspecified; E55.9 Vitamin D deficiency, unspecified; F17.200 Nicotine dependence, unspecified, uncomplicated; Z79.899 Other long term (current) drug therapy; Z79.02 Long term (current) use of antithrombotics/antiplatelets
CPT/HCPCS: 43235; G0121; J2003; J2250; J2704; J3010

== ENCOUNTER → 2025-01-20 07:21 | Outpatient (BNV) | payer MEDICARE, SELFPAY | PROVIDERS: PCP Internal Medicine; Visit Provider Surgery | DX: D64.9 Anemia, unspecified (principal); K57.30 Diverticulosis of large intestine without perforation or abscess without bleeding | CPT/HCPCS: 43235; 45378 ==

== ENCOUNTER 2025-02-02 09:25 | Outpatient (AMB) | payer MEDICARE, SELFPAY ==
[2025-02-02 09:32] VITALS: BP 133/66; PULSE 77
--- NOTE | 2025-02-02 09:32 | A.OFFVIS_ITS ---
Vital Signs 02/02/25 09:32 Weight 231 lb BP 133/66 Blood Pressure Location Rt brachial Position Sitting Pulse 77 Intake Visit Reasons: s/p colonoscopy Intake Note: Patient here s/p EGD, Colonoscopy on 01-20-2025. Patient c/o: reports procedure went well. 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 Accompanied by: spouse Elodia Allergies wool Allergy (Unknown, Verified 02/02/25 09:33) HIVES ALL OVER Medication List - Last Reconciled 02/02/25 by Godfrey Coker MD allopurinol 300 mg PO DAILY 90 days amlodipine 10 mg PO DAILY 30 days betamethasone dipropionate 0.05% 1 appl topical DAILY betamethasone valerate 0.1% 1 appl topical BID PRN fluticasone propionate 50 mcg/actuation (Flonase Allergy Relief) 2 sprays intranasal DAILY gemfibrozil 600 mg PO DAILY hydrocortisone 2.5% 1 appl topical BID-TID PRN levothyroxine 125 mcg PO DAILY 90 days lisinopril 40 mg PO DAILY 30 days omeprazole 20 mg PO DAILY rosuvastatin 5 mg PO DAILY sildenafil 100 mg PO DAILY PRN ustekinumab (Stelara) 90 mg subcut [id number] HPI HPI s/p colonoscopy: Details: He had undergone EGD and colonoscopy last 01/20/2025 because of a history of anemia with heme-positive stools. He tolerated procedure well. He currently denies GI complaints. [facility] Medical History LFT elevation Subclinical hyperthyroidism Upper respiratory infection Impacted cerumen of both ears Vitamin D deficiency Multinodular thyroid Acute sinusitis Enlarged thyroid Annual physical exam Hyperthyroidism Abnormal TSH Type 2 diabetes mellitus with hyperglycemia Erectile dysfunction Psoriasis Gout Obesity (BMI 30-39.9) Hypertriglyceridemia Hypertension Surgical History H/O colonoscopy Hx of thyroidectomy Hx of biopsy Hx of tonsillectomy Family History Mother Bone cancer Brain cancer Sister Breast cancer in situ Other Myocardial infarct Social History Housing: House Alcohol intake: current Alcohol intake frequency: 3 or more drinks per day Comment: QD 2-3 drinks Patient Tobacco Use Status: Never used Tobacco Tobacco use type: Cigar Years Smoked: state 3 a year cigar e-Cigarette/Vaping Use: Never Used Second Hand Smoke Exposure: Yes service: No Current occupational status: employed Cognitive needs: No Hearing needs: No Vision needs: Yes Review of Systems Const Denies chills and Denies fever(s) Card Denies chest pain Resp Denies cough GI Denies abdominal pain and Denies hematochezia Physical Exam Const General: comfortable and no acute distress Resp Effort & Inspection: normal respiratory effort GI Palpation (GI): Soft to palpation, not firm, nontender and no guarding Assessment & Plan Assessment & Plan (1) Anemia: Code(s): D64.9 - Anemia, unspecified Category: Medical Plan: Status post EGD and colonoscopy. I did not find any pathology on EGD. His syncope showed occasional diverticuli in the sigmoid, otherwise normal I explained to him the above findings. I would recommend repeating the colonoscopy in the age of 77. He can otherwise follow up with me on a p.r.n. basis. Coding Level of Care Code Est Pt Level 2 (82476) Diagnoses Anemia D64.9
== END 2025-02-02 09:40 | disposition home or self-care (01) ==
LOC: HO.HGS 09:26
PROVIDERS: PCP Internal Medicine; Visit Provider Surgery
DX: D64.9 Anemia, unspecified (principal)
CPT/HCPCS: 99212

== ENCOUNTER → 2025-02-02 09:25 | Outpatient (BNVA) | payer MEDICARE, SELFPAY | PROVIDERS: PCP Internal Medicine; Visit Provider Surgery | DX: Z09 Encounter for follow-up examination after completed treatment for conditions other than malignant neoplasm (principal); D64.9 Anemia, unspecified | CPT/HCPCS: 99212 ==

== ENCOUNTER 2025-02-27 09:33 | Outpatient (REF) | payer MEDICARE, SELFPAY ==
[2025-02-27 13:57] LABS: Cholesterol 165 mg/dL (<200); HDL Cholesterol 52 mg/dL (>40); Triglycerides 157 mg/dL (<150); Uric Acid 4.6 mg/dL (3.4-7.0)
[2025-02-27 14:21] LABS: Free T4 (Free Thyroxine) 1.14 ng/dL (0.71-1.85); Thyroid Stimulating Hormone 0.37 uIU/mL (0.32-4.0)
[2025-02-27 14:23] LABS: Folate 7.7 ng/mL (> or = 4.0); Vitamin B12 291 pg/mL (200-900)
== END 2025-02-27 09:34 | disposition home or self-care (01) ==
LOC: HO.HMGCLDS 09:33
PROVIDERS: PCP Internal Medicine; Visit Provider Internal Medicine
DX: K76.0 Fatty (change of) liver, not elsewhere classified (principal); E78.00 Pure hypercholesterolemia, unspecified
CPT/HCPCS: 36415; 80061; 82607; 82746; 84439; 84443; 84550

== ENCOUNTER 2025-03-03 12:20 | Outpatient (AMB) | payer MEDICARE, SELFPAY ==
[2025-03-03 12:33] VITALS: BP 124/62; PULSE 83; O2SAT 98; BMI 31.7
--- NOTE | 2025-03-03 12:33 | A.OFFPC_ITS ---
Vital Signs 03/03/25 12:33 Height 5 ft 11 in Weight 227 lb BMI 31.7 BP 124/62 Blood Pressure Location Lt brachial Position Sitting Pulse 83 Pulse Source Pulse Oximeter Pulse Oximetry (%) 98 Oxygen Delivery Method Room Air Intake Visit Reasons: Guaiac positive stools low back pain Allergies wool Allergy (Unknown, Verified 03/03/25 12:34) HIVES ALL OVER Medication List - Last Reconciled 03/03/25 by Tia Oro MD allopurinol 300 mg PO DAILY 90 days amlodipine 10 mg PO DAILY 30 days betamethasone dipropionate 0.05% 1 appl topical DAILY betamethasone valerate 0.1% 1 appl topical BID PRN fluticasone propionate 50 mcg/actuation (Flonase Allergy Relief) 2 sprays intranasal DAILY gemfibrozil 600 mg PO DAILY hydrocortisone 2.5% 1 appl topical BID-TID PRN levothyroxine 125 mcg PO DAILY 90 days lisinopril 40 mg PO DAILY 30 days omeprazole 20 mg PO DAILY rosuvastatin 5 mg PO DAILY sildenafil 100 mg PO DAILY PRN Tobacco use date assessed: 07/23/24 Fall risk assessment: No Falls in past year Last assessed Fall Risk: 03/03/25 Dental Screening Dental Screen Date: 07/23/24 [facility] Medical History (Updated 03/03/25 @ 13:10 by Tia Oro MD) Erectile dysfunction LFT elevation Subclinical hyperthyroidism Upper respiratory infection Impacted cerumen of both ears Vitamin D deficiency Multinodular thyroid Acute sinusitis Enlarged thyroid Annual physical exam Hyperthyroidism Abnormal TSH Type 2 diabetes mellitus with hyperglycemia Erectile dysfunction Psoriasis Gout Obesity (BMI 30-39.9) Hypertriglyceridemia Hypertension Surgical History H/O colonoscopy Hx of thyroidectomy Hx of biopsy Hx of tonsillectomy Family History Mother Bone cancer Brain cancer Sister Breast cancer in situ Other Myocardial infarct Social History Housing: House Alcohol intake: current Alcohol intake frequency: 3 or more drinks per day Comment: QD 2-3 drinks Patient Tobacco Use Status: Never used Tobacco Tobacco use type: Cigar Years Smoked: state 3 a year cigar e-Cigarette/Vaping Use: Never Used Second Hand Smoke Exposure: Yes service: No Current occupational status: employed Cognitive needs: No Hearing needs: No Vision needs: Yes Questionnaire Thrive Questionnaire Date Thrive assessed: 12/23/24 I am a: Patient What is your living situation today?: I have a steady place to live Within the past 12 months, did the food you bought not last and you didn't have the money to get more?: Never true Within the past 12 months, did you worry whether your food would run out before you got money to buy more?: Never true Do you have trouble paying for medicines?: No Do you have trouble getting transportation to medical appointments?: No Do you have trouble paying your heating and electricity bill?: No Do you have trouble taking care of your child, family member or friend?: No Do you have trouble with day-to-day activities such as bathing, preparing meals, shopping, managing finances, etc.?: No Are you currently unemployed and looking for a job?: No Are you interested in more education?: No Please select the resources that you would like help with: None Currently or been in a relationship where the following occur: No concerns reported THRIVE Score: 0 VENKATESH-7 AMB Questionnaire VENKATESH-7 Date VENKATESH - 7 assessed: 12/23/24 Source: Developed by Drs. Berto Barreto, Janis Campuzano, Paramjit Ramires and colleagues, with an educational cy from [employer]. Physical exam (Primary Care) Vital Signs: Last Vital Signs Pulse 83 03/03/25 12:33 BP 124/62 03/03/25 12:33 Pulse Ox 98 03/03/25 12:33 Oxygen Delivery Method Room Air 03/03/25 12:33 BMI result Body Mass Index 31.7 Tobacco/Smoking Status: Tobacco use Status Tobacco use date assessed 07/23/24 03/03/25 12:35 Patient Tobacco Use Status Never used Tobacco 03/03/25 12:35 Tobacco use type Cigar 03/03/25 12:35 e-Cigarette/Vaping Use Never Used 03/03/25 12:35 Thrive Assessment: Date of Thrive Assessment Date Thrive assessed 12/23/24 03/03/25 12:35 Currently or been in a relationship where the following occur: No concerns reported Const Other: impacted cerumen R ear General: alert; No acute distress Eyes Conjunctivae: conjunctivae normal Resp Auscultation: clear to auscultation bilaterally Cardio Rate: regular rate Rhythm: regular rhythm GI Inspection: Yes normal to inspection Extrem General: Yes normal to inspection and No edema Office Procedures Cerumen Removal From which ear canal was the cerumen removed: right Removal: otoscope w/curette and cerumen loop/spoon Notes: patient tolerated procedure well, no complications and ear canal clear [id number] Irrigation/Lavage Coding Level of Care Code Est Pt Level 4 (65806) Complex EM visit Add On G2211 Diagnoses Essential hypertension I10 Hypertension type: essential hypertension Hypercholesterolemia E78.00 Anemia D64.9 Renal insufficiency N28.9 Hepatic steatosis K76.0 Obesity (BMI 30-39.9) E66.9 Postsurgical hypothyroidism E89.0 Type 2 diabetes mellitus with hyperglycemia, without long-term current use of insulin E11.65 Diabetes mellitus intermediate insulin use: without superintendent marine oil terminal use Impacted cerumen of right ear H61.21 CPT Codes Office Procedure - CPT: 39522-Cmy Irrigation/Lavage ([id number]) Assessment & Plan Assessment & Plan (1) Hypertension: Code(s): I10 - Essential (primary) hypertension Category: Medical Qualifiers: Hypertension type: essential hypertension Qualified Code(s): I10 - Essential (primary) hypertension Plan: Continue with blood pressure medication. Decrease salt intake and exercise patient is on lisinopril 40 mg once a day amlodipine 10 mg once a day (2) Hypercholesterolemia: Code(s): E78.00 - Pure hypercholesterolemia, unspecified Category: Medical Plan: Avoid fried foods, chicken skin, eggs, butter margarine, pastries and meat. Be it pork or beef they have a lot of cholesterol patient takes rosuvastatin 5 mg once a day gemfibrozil 600 mg once a day (3) Anemia: Code(s): D64.9 - Anemia, unspecified Category: Medical Plan: Stable continue to monitor (4) Renal insufficiency: Code(s): N28.9 - Disorder of kidney and ureter, unspecified Category: Medical Plan: Will ask patient to repeat blood work to monitor renal function (5) Hepatic steatosis: Comment: July 2023 Code(s): K76.0 - Fatty (change of) liver, not elsewhere classified Category: Medical Plan: Low-fat diet and exercise (6) Obesity (BMI 30-39.9): Code(s): E66.9 - Obesity, unspecified Category: Medical Plan: Diet and exercise (7) Postsurgical hypothyroidism: Code(s): E89.0 - Postprocedural hypothyroidism Category: Medical Plan: Continue with thyroid medication. February blood work is normal (8) Type 2 diabetes mellitus with hyperglycemia: Comment: Dr. Chrisitanson--pt denies dm Code(s): E11.65 - Type 2 diabetes mellitus with hyperglycemia Category: Medical Qualifiers: Diabetes mellitus superintendent marine oil terminal insulin use: without superintendent marine oil terminal use Qualified Code(s): E11.65 - Type 2 diabetes mellitus with hyperglycemia Plan: Decrease the amount of carbohydrate intake, pasta, bread, rice and potatoes are all sugar and that is aside from all the sweet stuff, remember that fruits are good but they are Sweet also. Hemoglobin A1c goal of less than 7.0. Patient on diet control (9) Impacted cerumen of right ear: Code(s): H61.21 - Impacted cerumen, right ear Category: Medical Plan: irrigation done and TM intact R ear Plan History of Present Illness The patient is a 69-year-old male presenting for a follow-up visit and management of chronic conditions. The patient has a history of diabetes mellitus, with the last hemoglobin A1c recorded at 6.2 in October 2024, indicating good control. The patient manages diabetes primarily through diet control. The patient has hypercholesterolemia, with an LDL level of 82 mg/dL and triglycerides at 157 mg/dL, both within acceptable ranges. The patient is on rosuvastatin and gemfibrozil for cholesterol management. Hypertension is managed with lisinopril and amlodipine, and the patient's blood pressure is reported as very good. The patient has a history of psoriasis, previously managed with Stelara injections, which were discontinued due to insurance issues. Currently, topical treatments are used as needed. The patient has hypothyroidism, which is stable with current medication. Hepatic steatosis is noted, with liver function tests showing elevation. Anemia was identified in November 2024, with normal platelet and white blood cell counts. Renal insufficiency is noted with a creatinine level of 1.4, and the patient is advised to avoid NSAIDs to prevent further kidney damage. The patient has diverticular disease, identified during a colonoscopy, which is common and currently asymptomatic. [facility] Maintenance - Colonoscopy performed in January 2025, showing diverticular disease - Regular monitoring of blood pressure and cholesterol levels - Blood work to monitor renal function - Dietary recommendations include a low-fat diet and exercise Social History - Exercise: Patient engages in physical activities such as lawn mowing and walking, though experiences fatigue more quickly than before. - Diet: Patient follows a diet with limited beef intake and includes fish and chicken. Review of Systems - Cardiovascular: Denies chest pain or dyspnea. - Neurological: Reports feeling tired but denies dizziness or syncope. - Gastrointestinal: Denies constipation. - Genitourinary: Reports nocturia, waking up three times per night to urinate. Physical Exam - Cardiovascular: Blood pressure is very good - Ears: Presence of earwax, flushed out during visit Results - Labs: Hemoglobin A1c at 6.2 in October 2024 - Labs: LDL cholesterol at 82 mg/dL, triglycerides at 157 mg/dL - Labs: B12 level at 291 - Labs: Creatinine level at 1.4 - Tests: Colonoscopy in January 2025 showing diverticular disease Plan Patient was informed and verbally consented to the use of an ambient scribe for clinic note documentation during this visit. 1. Diabetes Mellitus The patient's diabetes is managed through diet control, with a goal to maintain hemoglobin A1c below 7.0%. The last recorded A1c was 6.2%, indicating good control. 2. Hypercholesterolemia The patient is on rosuvastatin and gemfibrozil, with LDL cholesterol at 82 mg/dL and triglycerides at 157 mg/dL. The plan is to continue current medications and monitor lipid levels. 3. Hypertension Hypertension is managed with lisinopril and amlodipine, and the patient's blood pressure is reported as very good. 4. Psoriasis Psoriasis was previously managed with Stelara injections, which were discontinued due to insurance issues. Currently, topical treatments are used as needed. 5. Hypothyroidism The patient's hypothyroidism is stable with current medication, and no changes are planned. 6. Hepatic Steatosis Hepatic steatosis is noted, with liver function tests showing elevation. 7. Anemia Anemia was identified in November 2024, with normal platelet and white blood cell counts. 8. Renal Insufficiency Renal insufficiency is noted with a creatinine level of 1.4. The patient is advised to avoid NSAIDs to prevent further kidney damage. 9. Diverticular Disease Diverticular disease was identified during a colonoscopy and is currently asymptomatic. Discussion Notes During the visit, we discussed the management of the patient's chronic conditions, including diabetes, hypercholesterolemia, hypertension, and renal insufficiency. The importance of maintaining a low-fat diet and regular exercise was emphasized, along with the need to monitor renal function and avoid NSAIDs. We also reviewed the patient's medication regimen and the need for regular follow-up to monitor the effectiveness of the treatment plan. Patient Instructions - Continue current medication regimen as prescribed. - Follow a low-fat diet and engage in regular exercise. - Avoid NSAIDs to protect kidney function. - Schedule follow-up blood work to monitor renal function. Orders: Orders Complete Blood Count Auto Diff Today D64.9 - Anemia, unspecified Ferritin Today D64.9 - Anemia, unspecified Reticulocyte Count Today D64.9 - Anemia, unspecified IRON PROFILE Today D64.9 - Anemia, unspecified AMB Hemoglobin A1c Today Z13.9 - Encounter for screening, unspecified Comprehensive Met. Panel Today N28.9 - Disorder of kidney and ureter, unspecified Medications: On Hold omeprazole Hold Comment: Doctor's Order 20 mg PO DAILY 30 caps 0RF D64.9 - Anemia, unspecified, R19.5 - Other fecal abnormalities
== END 2025-03-03 13:21 | disposition home or self-care (01) ==
LOC: HO.HMCH 12:20
PROVIDERS: PCP Internal Medicine; Visit Provider Internal Medicine
DX: I10 Essential (primary) hypertension (principal); E11.65 Type 2 diabetes mellitus with hyperglycemia; N28.9 Disorder of kidney and ureter, unspecified; E78.00 Pure hypercholesterolemia, unspecified; D64.9 Anemia, unspecified; Z68.31 Body mass index [BMI] 31.0-31.9, adult; E66.9 Obesity, unspecified; K76.0 Fatty (change of) liver, not elsewhere classified; E89.0 Postprocedural hypothyroidism; H61.21 Impacted cerumen, right ear

== ENCOUNTER → 2025-03-03 12:20 | Outpatient (BNVA) | payer MEDICARE, SELFPAY | PROVIDERS: PCP Internal Medicine; Visit Provider Internal Medicine | DX: I10 Essential (primary) hypertension (principal); E78.00 Pure hypercholesterolemia, unspecified; D64.9 Anemia, unspecified; K76.0 Fatty (change of) liver, not elsewhere classified; E66.9 Obesity, unspecified; E89.0 Postprocedural hypothyroidism; E11.65 Type 2 diabetes mellitus with hyperglycemia; H61.21 Impacted cerumen, right ear; L40.9 Psoriasis, unspecified | CPT/HCPCS: 69210; 99212 ==

== ENCOUNTER 2025-03-18 09:45 | Outpatient (REF) | payer MEDICARE, SELFPAY ==
[2025-03-18 13:43] LABS: MANUAL DIFF FLAG NO
[2025-03-18 13:55] LABS: Hematocrit 41.5 % (42.0-52.0); Hemoglobin 14.3 g/dl (14.0-18.0); Imm Gran Abs Auto 0.03 X10*3/uL (0.00-0.03); Imm Gran Pct Auto 0.4 % (0.0-0.4); Lymphocytes Absolute Auto 2.5 X10*3/uL (1.2-4.9); Mean Corpuscular HGB Conc 34.5 g/dl (31.0-36.0); Mean Corpuscular Hemoglobin 32.8 pg (27.0-33.0); Mean Corpuscular Volume 95.2 fL (80.0-98.0); NRBC Abs Auto 0.000 X10*3/uL (0.0-0.012); NRBC Pct Auto 0.0 /100WBC (0.0-0.2); Platelet Count 183 X10*3/uL (160-400); Red Blood Count 4.36 X10*6/uL (4.60-5.80); Reticulocytes Absolute 0.058 X10*6/uL (0.026-0.095); White Blood Count 7.4 X10*3/uL (4.8-10.8)
[2025-03-18 14:11] LABS: Alanine Aminotransferase 44 U/L (0-40); Albumin Level 4.9 g/dL (3.5-5.0); Alkaline Phosphatase 143 U/L (39-117); Anion Gap 11 (12-20); Aspartate Amino Transferase 57 U/L (5-37); Blood Urea Nitrogen 23 mg/dL (9-16); Calcium 9.5 mg/dL (8.4-10.2); Carbon Dioxide 24 mmol/L (22-29); Chloride 104 mmol/L (96-108); Estimated Glomerular Filt Rate 52; Iron 98 mcg/dL (45-160); Percent Iron Saturation 30 % (15-50); Potassium 4.8 mmol/L (3.3-5.1); Sodium 134 mmol/L (135-145); Total Iron Binding Capacity 332 mcg/dL (228-428); Total Protein 8.2 g/dL (6.5-8.0); Unsaturated Iron Binding 234 ug/dL
[2025-03-18 14:32] LABS: Ferritin 406 ng/mL (20-250)
== END 2025-03-18 09:46 | disposition home or self-care (01) ==
LOC: HO.HMGCLDS 09:45
PROVIDERS: PCP Internal Medicine; Visit Provider Internal Medicine
DX: D64.9 Anemia, unspecified (principal); N28.9 Disorder of kidney and ureter, unspecified
CPT/HCPCS: 36415; 80053; 82728; 83540; 85025; 85045

== ENCOUNTER 2025-04-08 11:55 | Outpatient (AMB) | payer MEDICARE, SELFPAY ==
--- NOTE | 2025-04-08 12:07 | AM.OFFVISNUR ---
Intake Visit Reasons: flu shot Allergies wool Allergy (Unknown, Verified 03/03/25 12:34) HIVES ALL OVER Office Procedures Flu Questionnaire Does the patient have a severe egg allergy?: No Does the patient have severe life threatening allergies?: No Does the patient have a fever or illness today?: No Has the patient ever had Guillain-Nutrioso Syndrome?: No Has the patient ever had any past reaction to a flu shot?: No Immunizations Fluarix [id number] (PF) 45 mcg (15 mcg x 3)/0.5 mL IM syringe Performing Provider: Tia Oro MD [facility] Administered by: Margaret Ramesh LPN on 04/08/25 12:07 Dose Route Admin Location Dispensed Lot Number Expiration Date [facility] Relations Director 0.5 mL IM Left Deltoid 0.5 mL [id number] 12/08/25 58837-133-31 [employer] [place] VIS Given Date VIS Provided VIS Publication Date 04/08/25 Single Vaccine 24 Eligibility Eligibility Date Funding Source Not [facility] Eligible 04/08/25 Private Assessment & Plan Assessment & Plan Orders: Orders Influenza [id number] Immunization Today Z23 - Encounter for immunization Coding
== END 2025-04-08 12:08 | disposition home or self-care (01) ==
LOC: HO.HMCH 11:56
PROVIDERS: PCP Internal Medicine; Visit Provider Internal Medicine
DX: Z23 Encounter for immunization (principal)

== ENCOUNTER → 2025-04-08 11:55 | Outpatient (BNVA) | payer MEDICARE, SELFPAY | PROVIDERS: PCP Internal Medicine; Visit Provider Internal Medicine | DX: Z23 Encounter for immunization (principal) | CPT/HCPCS: 90471; 90656 ==

== ENCOUNTER 2025-05-21 10:57 | Outpatient (REF) | payer MEDICARE, SELFPAY | END 2025-05-21 10:58 | disposition home or self-care (01) | LOC: HO.HMGCLDS 10:57 | PROVIDERS: Dermatology; PCP Internal Medicine; Visit Provider Physician Assistant Medical | DX: Z11.1 Encounter for screening for respiratory tuberculosis (principal); L40.0 Psoriasis vulgaris | CPT/HCPCS: 36415; 86481 ==

== ENCOUNTER 2025-06-10 12:53 | Outpatient (AMB) | payer MEDICARE, SELFPAY ==
--- NOTE | 2025-06-10 12:54 | MHC.PC.OV ---
Intake Visit Reasons: ? sinus infection Allergies wool Allergy (Unknown, Verified 06/10/25 12:55) HIVES ALL OVER Tobacco use date assessed: 07/23/24 Dental Screening Dental Screen Date: 07/23/24 HPI ? sinus infection HPI Details congested, pressure to ear and teeth painful 5 days, has chills , no cough, mild sob HPI Comments History of Present Illness Details History of Present Illness The patient is a 69-year-old obese male with a history of diabetes mellitus, hypertension, hypercholesterolemia, psoriasis, and hypothyroidism, presenting with a suspected recurrent sinus infection. He reports symptom onset since , including generalized congestion, facial pressure that radiates to his ear, and pain in his upper teeth. Associated symptoms include pain behind his eye and on his forehead, chills, night sweats, poor sleep, and a headache for which he has been taking Tylenol. He experiences dyspnea due to nasal congestion but denies any cough. This is similar to a sinus infection he had in the summer of the same year. He reports having three leftover amoxicillin tablets from his previous prescription, which he started taking the day before this call and finished this morning. In the past, he tried a nasal spray which he felt worsened his symptoms. His last laboratory work on March 18 showed a hemoglobin of 14.3, mild hyponatremia, creatinine of 1.36, and mildly elevated liver function tests. His blood sugar was 141, and cholesterol testing in February revealed an LDL of 82. REPLACED BY [facility] Medical History (Updated 06/10/25 @ 13:35 by Tia Oro MD) Erectile dysfunction LFT elevation Subclinical hyperthyroidism Upper respiratory infection Impacted cerumen of both ears Vitamin D deficiency Multinodular thyroid Acute sinusitis Enlarged thyroid Annual physical exam Hyperthyroidism Abnormal TSH Type 2 diabetes mellitus with hyperglycemia Erectile dysfunction Psoriasis Gout Obesity (BMI 30-39.9) Hypertriglyceridemia Hypertension Surgical History H/O colonoscopy Hx of thyroidectomy Hx of biopsy Hx of tonsillectomy Family History Mother Bone cancer Brain cancer Sister Breast cancer in situ Other Myocardial infarct Social History Housing: House Alcohol intake: current Alcohol intake frequency: 3 or more drinks per day Comment: QD 2-3 drinks Patient Tobacco Use Status: Never used Tobacco Tobacco use type: Cigar Years Smoked: state 3 a year cigar e-Cigarette/Vaping Use: Never Used Second Hand Smoke Exposure: Yes service: No Current occupational status: employed Cognitive needs: No Hearing needs: No Vision needs: Yes Questionnaire Thrive Questionnaire Date Thrive assessed: 10/28/24 VENKATESH-7 AMB Questionnaire VENKATESH-7 Date VENKATESH - 7 assessed: 12/23/24 Source: Developed by Drs. Berto Barreto, Janis Campuzano, Paramjit Ramires and colleagues, with an educational cy from [employer]. Review of Systems Narrative Review of Systems - Constitutional: Reports chills and night sweats. - HEENT: Reports facial pressure, ear pressure, pain in upper teeth, headache, and nasal congestion. - Respiratory: Reports dyspnea from nasal obstruction. Denies cough. Physical exam (Primary Care) Tobacco/Smoking Status: Tobacco use Status Tobacco use date assessed 07/23/24 06/10/25 12:56 Patient Tobacco Use Status Never used Tobacco 06/10/25 12:56 Tobacco use type Cigar 06/10/25 12:56 e-Cigarette/Vaping Use Never Used 06/10/25 12:56 Thrive Assessment: Date of Thrive Assessment Date Thrive assessed 10/28/24 06/10/25 12:56 Telehealth Telehealth Location of provider rendering services: practice address Location of patient: address on file Patient Identification confirmed using: Name, : Yes Telehealth method: video Patient verbally consented to treatment: Yes Patient verbally consented to billing insurance company: Yes Patient informed of any privacy concerns related to visit: Yes Minutes spent on Phone/Video with Pt.: 15 Coding Level of Care Code Tele Est Pt Level 3 (18841) Diagnoses Nasal congestion R09.81 Assessment & Plan Assessment & Plan (1) Nasal congestion: Code(s): R09.81 - Nasal congestion Category: Medical Plan: Antibiotic prescription sent in. For the sore throat can take Cepacol lozenges, discussed about Delsym to help with dry cough so she can rest and advised to increase oral fluids. Patient also can take Tylenol for chills and fever. Plan Plan Patient was informed and verbally consented to the use of an ambient scribe for clinic note documentation during this visit. 1. Acute Sinusitis The patient's presentation with facial pressure, congestion, ear pressure, and tooth pain since [place] is consistent with an acute recurrence of sinusitis. As he has already self-initiated treatment with leftover amoxicillin and it has been several months since his last course, a new prescription for amoxicillin will be sent to his pharmacy to complete a full course of therapy. He was advised to continue taking Tylenol for his headache but was cautioned against using it for more than seven days. He was instructed to ensure adequate fluid intake. If his symptoms persist despite antibiotic therapy, the plan is to obtain sinus X-rays for further evaluation. Discussion Notes I discussed with the patient that his symptoms are consistent with recurrent sinusitis. I explained that although we typically prefer not to reuse the same antibiotic for a recurrent infection, a sufficient amount of time has passed since his last episode, making amoxicillin a reasonable choice, particularly since he had already begun taking it. I informed him about the common side effects of amoxicillin, including nausea, vomiting, or diarrhea. I instructed him to maintain good hydration and advised that he could use Tylenol for pain for a maximum of seven days. I recommended that if symptoms fail to improve with the medication, we will need to perform a sinus X-ray for further investigation. We also briefly discussed the high prevalence of flu and COVID-19, and I encouraged him to take safety precautions. Patient Instructions - A prescription for Amoxicillin has been sent to [facility]. Please take this medication as directed until it is all gone. - Make sure to drink plenty of fluids, such as water. - You can continue to take Tylenol for your headache, but do not take it for more than 7 days. - Common side effects of amoxicillin include nausea, vomiting, or diarrhea. Please let us know if you experience these. - If your symptoms do not get better with the antibiotic, call our office. You may need to have an X-ray of your sinuses. - Please be safe, as there is a lot of flu and COVID-19 going around right now. Medications: Refilled amoxicillin-pot clavulanate 875-125 mg 1 tab PO BID 14 tabs 0RF J32.9 - Chronic sinusitis, unspecified
== END 2025-06-10 14:20 | disposition home or self-care (01) ==
LOC: HO.HMCH 12:53
PROVIDERS: PCP Internal Medicine; Visit Provider Internal Medicine
DX: R09.81 Nasal congestion (principal)